=== PATIENT | female | born 1970 | race Caucasian/White ===

== ENCOUNTER 2019-02-03 02:53 | Emergency (ER) | payer MEDICAID, SELFPAY ==
[2019-02-03 03:07] VITALS: BP 137/77; PULSE 81; RESP 18; TEMP 36.8; O2SAT 98; BMI 33.8
--- NOTE | 2019-02-03 03:13 | XR_ITS ---
XR ankle RT min 3V HISTORY: ITS.REASON: pain ORDERING PHYSICIAN: Kike Crocker MD PATIENT AGE: 49 years Comparison: None FINDINGS: No fracture or dislocation. No lytic or blastic change. There is normal mineralization.. The joint spaces are well-preserved. No significant degenerative/arthritic changes. No erosive changes evident. IMPRESSION: Negative ankle, no acute finding
[2019-02-03 04:25] VITALS: BP 105/61; PULSE 61; RESP 14; O2SAT 98
--- NOTE | 2019-02-03 04:25 | HMH.EDLOEX ---
ED Disposition Clinical Impression: Ankle sprain and strain Disposition: Home, Self-Care Condition on Discharge: Good Instructions: DI for Ankle Sprain Additional Instructions: workman comp form completed Referrals: Arjun Unger [Primary Care Provider] - - Critical Care Critical Care Time: No Attestation: On 02/03/19, the high probability of a clinically significant, sudden or life threatening deterioration of the following system(s) required my full and direct attention, intervention and personal management. The time I documented below is in addition to time spent performing reported procedures but includes the following listed in this critical care notation. Medical Decision Making - Medical Records Medical records reviewed: Yes: I reviewed the patient's medical records. - Elmer Inquiry Pt receiving controlled substance: No Vital Signs: 02/03/19 03:07 Temperature 98.3 F Temperature Source Oral Pulse Rate [Right Radial] 81 Respiratory Rate 18 Blood Pressure [Right Arm] 137/77 Blood Pressure Mean [Right Arm] 97 02 Sat by Pulse Oximetry 98 Orders (Tests/Meds): ORDERS Category Date Time Status XR ankle RT min 3V Stat Exams 02/03/19 03:13 Taken - Radiology Data #1 Image(s): Ankle Image Reviewed: Yes I reviewed the patient's radiology image Preliminary Findings: No Fracture Seen Lower Extremity Injury HPI - General Chief Complaint: Extremity Injury, Lower Stated Complaint: AO 02/03/19 01:00 injury right foot Time Seen by Provider: 02/03/19 03:40 Mode of Arrival: Ambulatory Source of Information: Patient, Medical Record Limitations: No Limitations Description of Symptoms (Recalled from ER Triage Doc. by RN): right ankle pain after injuring it while working tonight at approx 0000 - History of Present Illness HPI Narrative: eversion type injury at work with pain and swelling rt ankile with dec wt bearing complaint: ankle injury Onset (ago): hour(s) Injury: Right: ankle Type of Injury: eversion Place: work Severity: moderate Exacerbating factors: weight bearing, movement, palpation Context: walking Associated symptoms: able to partially bear weight Other symptoms: none - Related Data Allergies Allergy/AdvReac Type Severity Reaction Status Date / Time No Known Allergies Allergy Verified 02/03/19 03:13 [facility] [place] History - Hepatitis A Screen Drug use history?: Yes High risk sexual behaviors?: No History of sexually transmitted infection?: No Currently employed?: No Childcare worker?: No Do you have indoor plumbing?: Yes Do you have electricity?: Yes Attestation statement:: This patient has been screened for Hepatitis A risk factors. I have reviewed the patient's past medical history: Yes Medical History: Denies:: Cancer, Diabetes Mellitus Type 1, Diabetes Mellitus Type 2, MRSA Amputation: No - Social History Smoking Status: Current every day smoker Tobacco Type: e-cigarettes # Packs/Day (cigarettes): 1 Alcohol Intake: never Substance Use Type: opiates Occupational Status: employed - Psychiatric History Expresses thoughts of harming self/others: None Suicide Plan Description: No Plan ROS Obtained: Yes All systems reviewed & no additional complaints - Constitutional Constitutional: Denies fever(s) - Eyes Eyes: Denies change in vision - ENT Ears, Nose, Mouth, and Throat: Denies sore throat - Cardiovascular Cardiovascular: Denies chest pain - Respiratory Respiratory: No cough - Gastrointestinal Gastrointestingal: Denies: abdominal pain - Genitourinary Male Genitourinary: Denies hematuria - Musculoskeletal Musculoskeletal: Reports as per HPI, Reports joint pain, Reports joint swelling, Reports limited range of motion - Integumentary/Breasts Skin/Breast: Denies rash - Neurologic Neurologic: Denies seizure-like activity Physical Exam - General General appearance: alert - Head Head exam: normocephalic - Eye Eye
--- NOTE | 2019-02-03 04:32 | ED_ITS ---
ED Disposition Clinical Impression: Ankle sprain and strain Disposition: Home, Self-Care Condition on Discharge: Good Instructions: DI for Ankle Sprain Additional Instructions: workman comp form completed Referrals: Arjun Unger [Primary Care Provider] - - Critical Care Critical Care Time: No Attestation: On 02/03/19, the high probability of a clinically significant, sudden or life threatening deterioration of the following system(s) required my full and direct attention, intervention and personal management. The time I documented below is in addition to time spent performing reported procedures but includes the following listed in this critical care notation. Medical Decision Making - Medical Records Medical records reviewed: Yes: I reviewed the patient's medical records. - Elmer Inquiry Pt receiving controlled substance: No Vital Signs: 02/03/19 03:07 Temperature 98.3 F Temperature Source Oral Pulse Rate [Right Radial] 81 Respiratory Rate 18 Blood Pressure [Right Arm] 137/77 Blood Pressure Mean [Right Arm] 97 02 Sat by Pulse Oximetry 98 Orders (Tests/Meds): ORDERS Category Date Time Status XR ankle RT min 3V Stat Exams 02/03/19 03:13 Taken - Radiology Data #1 Image(s): Ankle Image Reviewed: Yes I reviewed the patient's radiology image Preliminary Findings: No Fracture Seen Lower Extremity Injury HPI - General Chief Complaint: Extremity Injury, Lower Stated Complaint: AO 02/03/19 01:00 injury right foot Time Seen by Provider: 02/03/19 03:40 Mode of Arrival: Ambulatory Source of Information: Patient, Medical Record Limitations: No Limitations Description of Symptoms (Recalled from ER Triage Doc. by RN): right ankle pain after injuring it while working tonight at approx 0000 - History of Present Illness HPI Narrative: eversion type injury at work with pain and swelling rt ankile with dec wt bearing complaint: ankle injury Onset (ago): hour(s) Injury: Right: ankle Type of Injury: eversion Place: work Severity: moderate Exacerbating factors: weight bearing, movement, palpation Context: walking Associated symptoms: able to partially bear weight Other symptoms: none - Related Data Allergies Allergy/AdvReac Type Severity Reaction Status Date / Time No Known Allergies Allergy Verified 02/03/19 03:13 [facility] History - Hepatitis A Screen Drug use history?: Yes High risk sexual behaviors?: No History of sexually transmitted infection?: No Currently employed?: No Childcare worker?: No Do you have indoor plumbing?: Yes Do you have electricity?: Yes Attestation statement:: This patient has been screened for Hepatitis A risk factors. I have reviewed the patient's past medical history: Yes Medical History: Denies:: Cancer, Diabetes Mellitus Type 1, Diabetes Mellitus Type 2, MRSA Amputation: No - Social History Smoking Status: Current every day smoker Tobacco Type: e-cigarettes # Packs/Day (cigarettes): 1 Alcohol Intake: never Substance Use Type: opiates Occupational Status: employed - Psychiatric History Expresses thoughts of harming self/others: None Suicide Plan Description: No Plan ROS Obtained: Yes All systems reviewed & no radha
[2019-02-03 04:35] VITALS: BP 105/67; PULSE 62; RESP 15; TEMP 36.6; O2SAT 99
== END 2019-02-03 04:39 | disposition home or self-care (01) ==
PROVIDERS: Emergency Provider Emergency Medicine; PCP Family Medicine
DX: M25.571 Pain in right ankle and joints of right foot (principal); X50.1XXA Overexertion from prolonged static or awkward postures, initial encounter; Y92.69 Other specified industrial and construction area as the place of occurrence of the external cause; Y99.0 Civilian activity done for income or pay; F17.290 Nicotine dependence, other tobacco product, uncomplicated
CPT/HCPCS: 73610; 99282

== ENCOUNTER 2020-12-27 13:29 | Emergency (ER) | payer MEDICAID, SELFPAY ==
--- NOTE | 2020-12-27 13:25 | ECG_ITS ---
APPROVED REPORT Exam: Resting ECG HR:70 bpm ECG Measurements Heart Rate 70 AXES NH 138 P 23 QRSd 82 QRS 18 QT 400 T 34 QTc 432 Conclusion Normal sinus rhythm Normal ECG Electronically signed by : Jordan Azevedo, 12/27/2020 17:33:51
[2020-12-27 13:30] VITALS: BP 100/51; PULSE 68; RESP 16; TEMP 36.6; O2SAT 97; BMI 28.3
--- NOTE | 2020-12-27 13:31 | XR_ITS ---
PROCEDURE: XR CHEST PORTABLE CLINICAL HISTORY: Chest pain COMPARISON: No exams were available for comparison FINDINGS: The cardiomediastinal silhouette and pulmonary vascularity are within normal limits. The lungs are clear without infiltrates, suspicious nodules, or pleural effusions. Small focal area of increased density is present overlying the anterior aspect of the right 6th rib and may be due to summation artifact. An underlying granuloma is also consideration. There is an old right clavicular fracture. IMPRESSION: No acute findings. Dictated by: Km Ramirez MD 12/27/2020 14:03 Km Ramirez MD in [facility] 12/27/2020 14:03
--- NOTE | 2020-12-27 13:40 | HMH.EDGENADL ---
ED Disposition Clinical Impression: Chest pain Qualifiers: Chest pain type: other chest pain Qualified Code(s): R07.89 - Other chest pain Disposition: Home, Self-Care Condition on Discharge: Good Additional Instructions: Try [id number] medication such as Tylenol and ibuprofen for pain. Use ice on chest. Return immediately if new or recurrent symptoms. Referrals: PCP,No [Non-Staff] - - Critical Care Critical Care Time: No Attestation: On 12/27/20, the high probability of a clinically significant, sudden or life threatening deterioration of the following system(s) required my full and direct attention, intervention and personal management. The time I documented below is in addition to time spent performing reported procedures but includes the following listed in this critical care notation. Medical Decision Making - Medical Records Medical records reviewed: Yes: I reviewed the patient's medical records. - Elmer Inquiry Pt receiving controlled substance: No Vital Signs: 12/27/20 13:30 12/27/20 14:12 Temperature 97.8 F Temperature Source Oral Pulse Rate 71 Pulse Rate [Right] 68 Respiratory Rate 16 18 Blood Pressure 105/63 L Blood Pressure [Right Arm] 100/51 L Blood Pressure Mean [Right Arm] 67 02 Sat by Pulse Oximetry 97 96 Oxygen Delivery Method Room Air - Lab Data Lab Results 12/27/20 13:30: WBC 5.5, RBC 4.55, Hgb 14.0, Hct 43.3, MCV 95.1, MCH 30.7, MCHC 32.3, RDW 13.4, Plt Count 258, MPV 8.0, Neut % (Auto) 63.8, Lymph % (Auto) 24.8, Sully % (Auto) 7.7, Eos % (Auto) 2.3, Baso % (Auto) 1.4, Neut # (Auto) 3.5, Lymph # (Auto) 1.4, Sully # (Auto) 0.4, Eos # (Auto) 0.1, Baso # (Auto) 0.1 12/27/20 13:30: Sodium 138, Potassium 4.2, Chloride 104, Carbon Dioxide 31 H, Anion Gap 7.2, BUN 11, Creatinine 0.60, Estimated Creat Clear 126, Estimated GFR 106, Est GFR ( Amer) 129, Glucose 97, Calcium 8.8, Troponin I < 0.01 12/27/20 16:56: Troponin I < 0.01 Result diagrams: 12/27/20 13:30 12/27/20 13:30 Orders (Tests/Meds): ED MEDICATIONS Discontinued Medications Generic Name Dose Route Start Last Admin Trade Name [place] PRN Reason Stop Dose Admin Iopamidol 75 ml 12/27/20 14:48 12/27/20 14:49 Iopamidol-370 (76%);100ml Bottle IV 12/27/20 14:49 75 ml ONCE ONE Administration Sodium Chloride 10 ml 12/27/20 14:48 12/27/20 14:48 Sodium Chloride 0.9% 10ml Syr (Rad Only) IV 12/27/20 14:49 10 ml ONCE ONE Administration ORDERS Category Date Time Status Troponin I Q3H Lab 12/27/20 19:45 Ordered - ECG Data Tracing #1 I reviewed this ECG and interpreted as documented below: EKG demonstrates sinus rhythm at a rate of 70 bpm; no T wave inversions or any acute ST depression/elevation; normal axis; QTC 432 ms Medical Decision Narrative: Patient presents with chest pain. EKG nonischemic which was obtained immediately upon arrival. Differential diagnosis does include aortic dissection versus ACS versus diffuse esophageal spasm versus costochondritis versus anemia versus acute cardiopulmonary abnormality. I am concerned the patient had chest pain that radiated to her back. 2+ pulses in bilateral upper and lower extremities but due to the concern for dissection CT chest with contrast will be obtained. Cardiac enzymes currently pending along with other basic lab test to ensure no hematologic or metabolic derangement. Labs nonactionable. Cardiac enzyme testing within normal limits x2. CT demonstrates no acute cardiopulmonary abnormality. Patient with improved symptoms since arrival with a low heart score. I do believe she is safe to be discharged. Etiology not entirely known but I did go over home remedies and instructed her to follow-up with her PCP in several days for recheck. She agrees. She will return if recurrent issues, new symptoms, or other concerning symptoms. Assessment: Chest pain Disposition: Home with followup General Adult [facility] - [facility]
[2020-12-27 13:54] LABS: Basophils # 0.1 K/mm3 (0-0.2); Basophils % 1.4 % (0.1-2.0); Eosinophils # 0.1 K/mm3 (0.0-0.4); Eosinophils % 2.3 % (0.1-12.0); Hematocrit 43.3 % (37.0-47.0); Lymphocytes # 1.4 K/mm3 (0.7-4.5); Lymphocytes % 24.8 % (10-50); Mean Corpuscular HGB Conc 32.3 g/dL (31.8-35.4); Mean Corpuscular Hemoglobin 30.7 pg (27.0-31.2); Mean Corpuscular Volume 95.1 fl (81-99); Monocytes # 0.4 K/mm3 (0.1-1.0); Monocytes % 7.7 % (1.7-9.3); Neutrophils # 3.5 K/mm3 (1.8-7.8); Neutrophils % 63.8 % (37.0-80.0); Platelet Count 258 K/mm3 (142-424); Red Blood Count 4.55 M/mm3 (4.20-5.40); Red Cell Distribution Width 13.4 % (11.5-17.5); White Blood Count 5.5 K/mm3 (4.8-10.8)
[2020-12-27 13:56] LABS: Anion Gap 7.2 mEq/L (5-15); Blood Urea Nitrogen 11 mg/dl (7-17); Calcium 8.8 mg/dl (8.4-10.2); Carbon Dioxide 31 mmol/L (22.0-30.0); Chloride 104 mmol/L (98-107); Creatinine Clearance Estimated 126 mL/min (50-200); Estimated Glomerular Filt Rate 106 ml/min (>60); GFR (African American) 129 ML/MIN (>60); Glucose 97 mg/dl (74-100); Potassium 4.2 mmoL/L (3.5-5.1); Sodium 138 mmol/L (136-145)
--- NOTE | 2020-12-27 14:05 | CT_ITS ---
PROCEDURE: CT CHEST W CON CLINCAL INDICATION: chest pain radiating to back Chest pain radiating into the back COMPARISON: No exams were available for comparison TECHNIQUE: IV Contrast: 75ml Isovue 370 Axial images obtained with sagittal and coronal reformats. All CT scans at the facility use one or more dose reduction, viz: automated exposure control, ma/kV adjustment per patient size (including targeted exams where dose is matched to indication, i.e. head), or iterative reconstruction technique. FINDINGS: HEART AND MEDIASTINAL STRUCTURES: The left lobe of the thyroid gland is slightly enlarged with a posterior extension. No evidence of aortic aneurysm or dissection. No evidence of central pulmonary embolus. No mediastinal or hilar mass or adenopathy. LUNGS AND PLEURAL SPACES: No areas of consolidation. Calcified granuloma is present in the left lower lobe. There is patchy ground-glass attenuation in the right upper lobe posteriorly and laterally BONY STRUCTURES: No acute bony abnormalities apparent. UPPER ABDOMEN: There is a moderate amount of retained colonic feces.. There is mild diffuse thickening of the stomach ADDITIONAL FINDINGS: No other significant abnormalities. IMPRESSION: 1. No evidence of aortic aneurysm or central pulmonary embolus. 2. Faint area of ground-glass attenuation in the right upper lobe. This is nonspecific. 3. Moderate amount of retained colonic feces. 4. Diffuse thickening of the gastric wall which could be due to nondistention or gastritis. Dictated by: Km Ramirez MD 12/27/2020 15:40 Km Ramirez MD in [facility] 12/27/2020 15:40
[2020-12-27 14:12] VITALS: BP 105/63; PULSE 71; RESP 18; O2SAT 96
[2020-12-27 14:12] LABS: Troponin I < 0.01 ng/ml (0.00-0.034)
--- NOTE | 2020-12-27 14:41 | PC.NURSE ---
pt gone to rad.
--- NOTE | 2020-12-27 14:49 | PC.NURSE ---
pt returning from rad
[2020-12-27 17:00] VITALS: BP 100/59; PULSE 52; RESP 16; O2SAT 97
--- NOTE | 2020-12-27 17:40 | PC.NURSE ---
Talking to Eliz in lab to follow up on second troponin.
[2020-12-27 17:41] LABS: Troponin I < 0.01 ng/ml (0.00-0.034)
--- NOTE | 2020-12-27 18:34 | PC.NURSE ---
pt karla. Patient was called via phone and states, I was having really bad anxiety just sitting there waiting and I had to get out and get fresh air. Pt states she was outside sitting in her car and that she took her IV out herself and put a bandaid on it. Patient advised to come back to ensure IV was removed per nursing staff request.
[2020-12-27 18:49] VITALS: BP 132/71; PULSE 87; RESP 18; TEMP 36.9; O2SAT 98
== END 2020-12-27 18:45 | disposition home or self-care (01) ==
PROVIDERS: Emergency Provider Emergency Medicine; PCP Family Medicine
DX: R07.89 Other chest pain (principal); F17.290 Nicotine dependence, other tobacco product, uncomplicated
CPT/HCPCS: 71045; 71260; 80048; 84484; 85025; 93005; 99282; Q9967

== ENCOUNTER 2021-07-03 09:56 | Emergency (ER) | payer MEDICAID, SELFPAY ==
[2021-07-03 09:57] VITALS: BP 148/95; PULSE 79; RESP 18; TEMP 36.9; O2SAT 98; BMI 28.3
[2021-07-03 10:25] LABS: UTC Strep Screen (Rapid) Negative (Negative)
--- NOTE | 2021-07-03 10:40 | HMH.EDUTC ---
[facility] [place] Disposition Clinical Impression: Bronchitis Sinusitis Qualifiers: Sinusitis location: unspecified location Chronicity: unspecified Qualified Code(s): J32.9 - Chronic sinusitis, unspecified Disposition: Home, Self-Care Condition on Discharge: Good Instructions: Sinusitis, Acute Bronchitis, DI for Sinusitis, Prednisone, Azithromycin Additional Instructions: ? Start antibiotic today. Be sure to complete entire prescription even if feeling better ? Monitor temp. Tylenol every 4 hours as needed and / or ibuprofen every 6 hours as needed ( As long as your primary care physician has told you that it ok to take both. For fever/aches/pains ER if no less than 101 despite Tylenol or Motrin ? Humidifier/vaporizer or hot steamy shower ? Mucinex during the day for your cough Be sure to drink lots of water. *Start steroid today. Helps with inflammation therefore, cough and wheezing. Follow directions on the package. Reviewed side effects. Patient reports taking them before. Follow up IMMEDIATELY for new or worsening of symptoms OR no noticeable improvement over the next 48-72 hours. 911 immediately for any life threatening symptoms such as chest pain or difficulty breathing Prescriptions: predniSONE [Deltasone 10mg tablet] 10 mg PO BID #10 tab Transmission Status: Received by [facility] guaiFENesin [Mucinex 600mg tablet] 1 - 2 tab PO Q12H PRN #20 tab PRN Reason: Congestion Transmission Status: Received by [facility] Azithromycin [Z-Delano 250mg Tab] 250 mg PO DIRECTED #6 tab Transmission Status: Received by [facility] Referrals: Provider,Referral, MD [Primary Care Provider] - As needed Forms: Work/School Release Time of Disposition: 10:51 Medical Decision Making - Elmer Inquiry Pt receiving controlled substance: No Elmer was queried for this patient: No Vital Signs: 07/03/21 09:57 07/03/21 10:59 Temperature 98.4 F 98.4 F Temperature Source Oral Pulse Rate 79 Pulse Rate [Left Radial] 79 Respiratory Rate 18 18 Blood Pressure 148/95 H Blood Pressure [Right Arm] 148/95 H Blood Pressure Mean [Right Arm] 112 Blood Pressure Source [Right Arm] Automatic Cuff Blood Pressure Position [Right Arm] Sitting 02 Sat by Pulse Oximetry 98 Oxygen Delivery Method Room Air Room Air - Lab Data Lab results reviewed: Yes: I reviewed the patient's lab results. Lab Results 07/03/21 10:18: Strep Scn Rapid Clinic Negative Orders (Tests/Meds): ORDERS Category Date Time Status Strep Screen Confirmation Routine Micro 07/03/21 10:18 Received [facility] [place] HPI - General Stated complaint: sore throat, cough, noam, runny nose Time Seen by Provider: 07/03/21 10:41 Mode of Arrival: Ambulatory Source of Information: Patient Limitations: No Limitations Description of Symptoms (Recalled from Triage Doc. by RN): c/o cough, sore throat, congestion, coughing with greenish sputum for the past 3 days HEENT Symptoms (Recalled from RN notes): Yes Resp Symptoms (Recalled from RN notes): Yes Skin Symptoms (Recalled from RN notes): No MS Symptoms (Recalled from RN notes): No Functional Status (Recalled from RN notes): na - History of Present Illness Provider Complaint: Patient states that she has been having sinus congestion and pressure for over a week States that she feels like it is draining in the back of her throat making her throat hurt and at times she will cough up the drainage States that today she was still having pressure and and sore throat throat so she came in to get checked thinks she may have bronchitis - Related Data Previous Rx's Medication Instructions Recorded Azithromycin [Z-Delano 250mg Tab] 250 mg PO DIRECTED #6 tab 07/03/21 guaiFENesin [Mucinex 600mg tablet] 1 - 2 tab PO Q12H PRN #20 tab 07/03/21 predniSONE [Deltasone 10mg tablet] 10 mg PO BID #10 tab 07/03/21 Allergies Allergy/AdvReac Type Severity Reaction Status Date / Time No Known Allergies Allergy Verified
[2021-07-03 10:59] VITALS: BP 148/95; PULSE 79; RESP 18; TEMP 36.9; O2SAT 98
== END 2021-07-03 11:00 | disposition home or self-care (01) ==
PROVIDERS: Emergency Provider Nurse Practitioner
DX: J20.9 Acute bronchitis, unspecified (principal); J32.9 Chronic sinusitis, unspecified; Z20.822 Contact with and (suspected) exposure to COVID-19; F17.290 Nicotine dependence, other tobacco product, uncomplicated
CPT/HCPCS: 87880; 99203; C9803; G0463; U0003; U0005

== ENCOUNTER 2022-02-14 17:30 | Outpatient (RCR) | payer MEDICAID, SELFPAY | END 2022-02-14 17:35 | disposition home or self-care (01) | LOC: PT 17:30 | PROVIDERS: Visit Provider Physician Assistant | DX: M50.30 Other cervical disc degeneration, unspecified cervical region (principal); M70.61 Trochanteric bursitis, right hip; M70.62 Trochanteric bursitis, left hip | CPT/HCPCS: 97110; 97163 ==

== ENCOUNTER → 2022-09-02 11:04 | Outpatient (CLI) | payer MEDICAID, SELFPAY ==
--- NOTE | 2022-09-02 11:08 | MR_ITS ---
FINAL REPORT CLINICAL HISTORY: CERVICAL DDD. NECK PAIN. RIGHT ARM NUMBNESS AND TINGLING. SYMPTOMS X6-7 YEARS. NO INJURY OR TRAUMA. FINDINGS: Multiplanar MR imaging of the cervical spine was performed without contrast. On the sagittal T2-weighted images, disc degeneration is seen throughout. There are mild endplate changes at C4-C5 and C5-C6. There is no evidence of fracture. The vertebral alignment is normal. The cervical spinal cord has an unremarkable appearance without evidence of mass, edema or syrinx. The cervicomedullary junction is normal. C2-3: There is no significant canal stenosis or neural foraminal narrowing. C3-4: There is a small central disc protrusion. There is no significant canal stenosis or neural foraminal narrowing. C4-5: A disc osteophyte complex with mild right neural foraminal narrowing. C5-6: There is a disc osteophyte complex with severe right and mild left neural foraminal narrowing. There is mild central canal stenosis with an AP thecal sac diameter of 7 mm. There is right C6 nerve root impingement. C6-7: There is an annular bulge with uncovertebral osteophytes. There is mild bilateral neural foraminal narrowing. C7-T1: There is no significant canal stenosis or neural foraminal narrowing. IMPRESSION: Multilevel degenerative disc disease with areas of neural foraminal narrowing. Mild central canal stenosis and right C6 nerve root impingement at C5-C6. Small central disc protrusion at C3-C4. Reviewed, Interpreted and Dictated by Carlo Shukla III, MD Transcribed by Konstantin Barros Authenticated and [facility]
== END ==
PROVIDERS: PCP Family Medicine; Visit Provider Orthopaedic Surgery Adult Reconstructive Orthopaedic Surgery
DX: M50.30 Other cervical disc degeneration, unspecified cervical region (principal)
CPT/HCPCS: 72141; 76376

== ENCOUNTER → 2022-10-08 11:04 | Outpatient (CLI) | payer MEDICAID, SELFPAY ==
[2022-10-08 11:29] LABS: Basophils # 0.1 K/mm3 (0-0.2); Basophils % 2.1 % (0.1-2.0); Eosinophils # 0.1 K/mm3 (0.0-0.4); Eosinophils % 0.9 % (0.1-12.0); Hematocrit 41.9 % (37.0-47.0); Hemoglobin 13.5 g/dL (12.2-16.2); Lymphocytes # 1.7 K/mm3 (0.7-4.5); Lymphocytes % 29.9 % (10-50); Mean Corpuscular HGB Conc 32.3 g/dL (31.8-35.4); Mean Corpuscular Hemoglobin 30.6 pg (27.0-31.2); Mean Corpuscular Volume 94.7 fl (81-99); Mean Platelet Volume 7.4 fl (7.4-10.4); Monocytes # 0.5 K/mm3 (0.1-1.0); Neutrophils # 3.4 K/mm3 (1.8-7.8); Neutrophils % 59.1 % (37.0-80.0); Platelet Count 290 K/mm3 (142-424); Red Blood Count 4.43 M/mm3 (4.20-5.40); Red Cell Distribution Width 13.6 % (11.5-17.5); White Blood Count 5.7 K/mm3 (4.8-10.8)
[2022-10-08 12:30] LABS: Thyroid Stimulating Hormone 1.79 uIU/mL (0.465-4.68)
[2022-10-09 11:58] LABS: Estradiol 80.5 pg/mL (.); FSH 18.2 mIU/mL (.)
== END ==
PROVIDERS: PCP Family Medicine; Visit Provider Obstetrics & Gynecology
DX: Z01.419 Encounter for gynecological examination (general) (routine) without abnormal findings (principal); N92.6 Irregular menstruation, unspecified
CPT/HCPCS: 36415; 82670; 83001; 84443; 85025

== ENCOUNTER → 2022-10-28 13:35 | Outpatient (CLI) | payer MEDICAID, SELFPAY ==
--- NOTE | 2022-10-28 13:40 | MM_ITS ---
PROCEDURE INFORMATION: Exam: MG Bilateral Screening 3D Mammography Exam date and time: 10/28/2022 1:40 PM Age: 52 years old Clinical indication: Screening mammogram TECHNIQUE: Imaging protocol: Bilateral Screening tomosynthesis and 2D mammography including computer-aided detection (CAD) when performed. COMPARISON: No relevant prior studies available. FINDINGS: MAMMOGRAPHY: Breast composition: There are scattered areas of fibroglandular density. Mass: None. Architectural distortion: No new or suspicious architectural distortion. Calcifications: No new or suspicious calcifications are present Asymmetric density: No new or suspicious asymmetric density is present Skin thickening: None. Axillary adenopathy: None. IMPRESSION: No mammographic evidence of malignancy. Recommend annual screening mammography unless otherwise clinically indicated. ASSESSMENT: BI-RADS category 1: Negative
--- NOTE | 2022-10-28 13:40 | US_ITS ---
FINAL REPORT CLINICAL HISTORY: abnormal bleeding and LLQ pain FINDINGS: Transvaginal sonographic images of the pelvis were obtained. The uterus measures 9.3 x 4.8 x 5.5 cm. The endometrium measures 5 mm. The right ovary measures 2.4 x 1.3 x 1.0 cm. The left ovary measures 3.0 x 2.6 x 1.9 cm. There is a left ovarian cyst measuring 1.6 cm. No free fluid is identified. IMPRESSION: Left ovarian cyst. Reviewed, Interpreted and Dictated by Carlo Shukla III, MD Transcribed by Tesha Soto Authenticated and . [facility]
== END ==
PROVIDERS: PCP Family Medicine; Visit Provider Obstetrics & Gynecology
DX: Z12.31 Encounter for screening mammogram for malignant neoplasm of breast (principal); N93.9 Abnormal uterine and vaginal bleeding, unspecified; R10.32 Left lower quadrant pain
CPT/HCPCS: 76830; 77063; 77067

== ENCOUNTER 2022-11-01 08:35 | Emergency (ER) | payer MEDICAID, SELFPAY ==
[2022-11-01] VITALS (10 sets, daily range): BP systolic 91–147; BP diastolic 45–85; PULSE 64–88; RESP 18–20; TEMP 36.3–36.4; O2SAT 97–100; BMI 27.4
--- NOTE | 2022-11-01 08:47 | PC.NURSE ---
pt ambulatory to restroom without complications; assistance from [employer]
--- NOTE | 2022-11-01 08:55 | PC.NURSE ---
DAGOBERTO ORDAZ at for patient eval
--- NOTE | 2022-11-01 08:56 | PC.NURSE ---
pt provided with warm blanket.
--- NOTE | 2022-11-01 08:59 | US_ITS ---
FINAL REPORT CLINICAL HISTORY: abdo pain, vomiting FINDINGS: Sonographic images of the right upper quadrant were obtained. The pancreas is partially obscured.The liver has an unremarkable appearance. The gallbladder is partially collapsed. No definite stones are identified. The common duct is borderline dilated at 6 mm. Limited images of the right kidney are unremarkable. IMPRESSION: Borderline dilatation of the common duct. If indicated, MRCP may be helpful. Reviewed, Interpreted and Dictated by Carlo Shukla III, MD Transcribed by Tesha Soto Authenticated and [facility]
--- NOTE | 2022-11-01 08:59 | CT_ITS ---
FINAL REPORT TECHNIQUE: After the administration of intravenous contrast, axial images were obtained through the abdomen and pelvis by computed tomography. This study was performed with technique to keep radiation doses as low as reasonably achievable, (ALARA). Individualized dose reduction techniques using automated exposure control or adjustment of the MA and/or KV according to the patient's size were employed. CLINICAL HISTORY: abdo pain, vomiting COMPARISON: 10/28/2022 ultrasound FINDINGS: Abdomen: There is mild atelectasis at the lung bases. The liver is normal in size and attenuation. There is mild, nonspecific gallbladder wall thickening and mild biliary ductal dilatation. The spleen is unremarkable. The adrenals are normal. The pancreas is unremarkable. The kidneys enhance appropriately. The aorta is normal in caliber. There is no free fluid or adenopathy. Multiple fluid-filled bowel loops are seen in a nonspecific pattern which could represent an enteritis. Pelvis: The appendix is not identified. There are no secondary findings of appendicitis. Moderate stool is seen throughout the colon. There are enlarged left periuterine veins which are nonspecific. Findings can be seen with pelvic congestion syndrome. There is a 15 mm left ovarian cyst. The urinary bladder is unremarkable. There is no free fluid or adenopathy. IMPRESSION: Mild, nonspecific gallbladder wall thickening and biliary ductal dilatation. If indicated, this could be further evaluated with MRCP. Enlarged left periuterine veins which can be seen with pelvic congestion syndrome. Multiple fluid-filled bowel loops which could represent enteritis. Reviewed, Interpreted and Dictated by Carlo Shukla III, MD Transcribed by Aicha Linares Authenticated and . [facility]
[2022-11-01 09:02] LABS: Microscopic, Urine URINE MICROSCOPIC (MICROSCOPIC)
--- NOTE | 2022-11-01 09:02 | HMH.EDGENADL ---
Discharge Plan Disposition Patient Disposition: Home, Self-Care Condition: Good Prescriptions Prescriptions: New dicyclomine 20 mg tablet 20 mg PO TIDP PRN (Reason: cramps) Qty: 10 0RF ondansetron 4 mg tablet,disintegrating 4 mg PO Q8H PRN (Reason: nausea and vomiting) Qty: 10 0RF prochlorperazine maleate [Compazine] 10 mg tablet 10 mg PO TID PRN (Reason: nausea and vomiting) Qty: 10 0RF No Action gabapentin 800 mg tablet 800 mg PO QID buprenorphine-naloxone 8-2 mg tablet, sublingual 1 tab sublingual BID Fish Oil Capsule 1,000 mg PO DAILY paroxetine mesylate 10 mg tablet 10 mg PO DAILY Referrals Follow up/Referrals: Eb Unger MD [Primary Care Provider] - See instructions Activity Restrictions/Add. Instructions Additional Instructions/Restrictions: Rest and drink plenty of fluids. Zofran or Compazine as needed for nausea and vomiting. Bentyl as needed for abdominal cramping/pain. You may also take Tylenol for pain and if any fever develops. If you develop diarrhea, you may follow-up with your primary care provider to get a diarrhea panel performed. Additional instructions for ABDOMINAL PAIN: See your physician as soon as possible for further evaluation. Return immediately if worsening abdominal pain, vomiting, shortness of breath, fever, vomiting of blood or abdominal distention. Clinical Impressions Clinical Impression: Enteritis Instructions Patient Instructions: DI for Nausea -- Adult, DI for Enteritis, DI for Abdominal Pain-Adult Discharge ED Provider: Arias Medina General Adult HPI General Chief complaint: Nausea/Vomiting/Diarrhea Stated complaint: vomiting Time Seen by Provider: 11/01/22 08:44 Mode of Arrival: EMS Source of Information: Patient Limitations: No Limitations Description of Symptoms (Recalled from ER Triage Doc. by RN): pt states she has been vomiting for the last hour, nauseous, and has upper abdominal pain, denies diarrhea or fever History of Present Illness HPI narrative: Patient brought in by ambulance. Patient states that she woke up at about 7 AM with intractable vomiting, nausea, severe pain across her mid abdomen. Last bowel movement was in the emergency department she says it was normal formed stool. Denies fever. Denies urinary symptoms. She has had a prior appendectomy. The last meal was at 7 PM last night. States that she has been in and out of the hospital as a visitor recently, but no recent hospital admissions, no specific known exposures. Related Data Home Medications Medication Instructions Recorded Confirmed buprenorphine 8 mg-naloxone 2 mg 1 tab sublingual BID . 10/08/22 11/01/22 sublingual tablet gabapentin 800 mg tablet 800 mg PO QID Pain 10/08/22 11/01/22 omega-3 fatty acids 1,000 mg PO DAILY Supplement 11/01/22 11/01/22 paroxetine mesylate 10 mg tablet 10 mg PO DAILY Depression 11/01/22 11/01/22 Previous Rx's Medication Instructions Recorded dicyclomine 20 mg tablet 20 mg PO TIDP PRN cramps #10 tabs 11/01/22 ondansetron 4 mg disintegrating 4 mg PO Q8H PRN nausea and 11/01/22 tablet vomiting #10 tabs prochlorperazine maleate 10 mg 10 mg PO TID PRN nausea and 11/01/22 tablet (Compazine) vomiting #10 tabs Allergies Allergy/AdvReac Type Severity Reaction Status Date / Time Latex, Natural Rubber Allergy Mild Rash Verified 10/08/22 09:53 cyclobenzaprine Allergy Verified 11/01/22 08:46 [From Flexeril] [facility] Disclaimer: The information contained in this section may have been updated after the patient was seen, as this information can be updated by other users. Medical History Abnormal uterine bleeding Degenerative disc disease Hot flashes due to menopause LLQ pain Surgical History History of bilateral tubal ligation Hx of appendectomy Family History (
[2022-11-01 09:04] LABS: Appearance,Urine CLEAR (Clear); Bilirubin,Urine Negative (Negative); Blood, Urine Negative (Negative); Color,Urine YELLOW (Yellow); Glucose,Urine (UA) Negative (Negative); Ketones,Urine Negative (Negative); Leukocyte Esterase,Urine Negative (Negative); Nitrate,Urine Negative (Negative); Protein,Urine Negative (Negative); Urobilinogen,Urine 0.2 EU/dl (0.2)
--- NOTE | 2022-11-01 09:09 | ECG_ITS ---
APPROVED REPORT Exam: Resting ECG HR:59 bpm ECG Measurements Heart Rate 59 AXES [place] 156 P 71 QRSd 88 QRS 43 QT 416 T 52 QTc 416 Conclusion SINUS BRADYCARDIA BORDERLINE ECG UNCONFIRMED REPORT Electronically signed by : Jordan Azevedo MD 11/02/2022 20:02:00
--- NOTE | 2022-11-01 09:13 | PC.NURSE ---
Pt given another warm blanket and pillow for comfort; and her room lights out. call light within reach
[2022-11-01 09:14] LABS: Chloride 106 mmol/L (98-107); Potassium 4.1 mmoL/L (3.5-5.1); Sodium 140 mmol/L (136-145)
[2022-11-01 09:17] LABS: Alanine Aminotransferase 22 U/L (12-78); Albumin Level 4.3 g/dl (3.5-5.0); Albumin/Globulin Ratio 1.4 (1.1-1.8); Alkaline Phosphatase 56 U/L (38-126); Anion Gap 7.1 mEq/L (5-15); Aspartate Amino Transferase 30 U/L (14-36); Bilirubin,Total 0.5 mg/dl (0.2-1.3); Blood Urea Nitrogen 16 mg/dl (7-17); Calcium 8.8 mg/dl (8.4-10.2); Carbon Dioxide 31 mmol/L (22.0-30.0); Creatinine Clearance Estimated 109 mL/min (50-200); Estimated Glomerular Filt Rate 88 ml/min (>60); GFR (African American) 107 ML/MIN (>60); Globulin 3.1 g/dL (1.3-3.2); Glucose 138 mg/dl (74-100); Lipase 48 U/L (23-300); Total Protein,Serum 7.4 g/dl (6.3-8.2)
[2022-11-01 09:18] LABS: Basophils # 0.1 K/mm3 (0-0.2); Basophils % 0.9 % (0.1-2.0); Eosinophils # 0.1 K/mm3 (0.0-0.4); Hemoglobin 14.7 g/dL (12.2-16.2); Lymphocytes # 1.1 K/mm3 (0.7-4.5); Lymphocytes % 17.3 % (10-50); Mean Corpuscular HGB Conc 31.3 g/dL (31.8-35.4); Mean Corpuscular Hemoglobin 30.4 pg (27.0-31.2); Mean Platelet Volume 8.3 fl (7.4-10.4); Monocytes # 0.3 K/mm3 (0.1-1.0); Neutrophils # 4.9 K/mm3 (1.8-7.8); Neutrophils % 75.8 % (37.0-80.0); Platelet Count 355 K/mm3 (142-424); Red Blood Count 4.85 M/mm3 (4.20-5.40); Red Cell Distribution Width 13.8 % (11.5-17.5); White Blood Count 6.5 K/mm3 (4.8-10.8)
[2022-11-01 09:24] LABS: Squamous Epithelial Cell,Urine Occasional #/hpf (0-5)
[2022-11-01 09:30] LABS: Troponin I < 0.01 ng/ml (0.00-0.034)
--- NOTE | 2022-11-01 09:30 | PC.NURSE ---
pt transported to radiology via wheelchair.
--- NOTE | 2022-11-01 09:31 | PC.NURSE ---
pt is going to ct via wheelchair
--- NOTE | 2022-11-01 09:42 | PC.NURSE ---
pt arrived back to room
--- NOTE | 2022-11-01 09:43 | PC.NURSE ---
pt returned from radiology via wheelchair.
--- NOTE | 2022-11-01 09:49 | PC.NURSE ---
pt resting in bed at this time. states she feels better. denies nausea or pain. call light within reach. bed in lowest position. ns infusing. lights out per pt reuqest. no questions or concerns voiced.
--- NOTE | 2022-11-01 10:12 | PC.NURSE ---
pt is going to rad for ultrasound
--- NOTE | 2022-11-01 10:13 | PC.NURSE ---
pt to US with remote sensing technician via WC
--- NOTE | 2022-11-01 10:15 | PC.NURSE ---
PT TRANSPORTED TO ULTRASOUND VIA WHEELCHAIR.
--- NOTE | 2022-11-01 10:15 | PC.NURSE ---
VAISHNAVI PROVIDED PT WITH ANOTHER WARM BLANKET.
--- NOTE | 2022-11-01 10:48 | PC.NURSE ---
ot returned back to room
--- NOTE | 2022-11-01 11:14 | PC.NURSE ---
pt resting no complaints at this time at bedside
--- NOTE | 2022-11-01 11:20 | PC.NURSE ---
CHECKED ON PT. RESTING IN BED AT THIS TIME. NO QUESTIONS OR CONCERNS VOICED. CALL LIGHT WITHIN REACH. BED IN LOWEST POSITION.
--- NOTE | 2022-11-01 12:09 | PC.NURSE ---
helped pt reposition in the bed
--- NOTE | 2022-11-01 12:25 | PC.NURSE ---
CHECKED ON PT. RESTING IN BED. NO QUESTIONS OR CONCERNS VOICED AT THIS TIME. CALL LIGHT WITHIN REACH. BED IN LOWEST POSITION.
--- NOTE | 2022-11-01 12:34 | PC.NURSE ---
DAGOBERTO ORDAZ AT BEDSIDE.
--- NOTE | 2022-11-01 12:35 | PC.NURSE ---
er at bedside
== END 2022-11-01 13:06 | disposition home or self-care (01) ==
PROVIDERS: Emergency Provider Emergency Medicine; PCP Ophthalmology
DX: K52.9 Noninfective gastroenteritis and colitis, unspecified (principal); Z90.49 Acquired absence of other specified parts of digestive tract; Z98.51 Tubal ligation status; Z80.9 Family history of malignant neoplasm, unspecified; Z82.49 Family history of ischemic heart disease and other diseases of the circulatory system
CPT/HCPCS: 74177; 76705; 80053; 81001; 83690; 84484; 85025; 93005; 96361; 96374; 96375; 99285; J2405; Q9967

== ENCOUNTER → 2022-12-11 15:15 | Outpatient (CLI) | payer MEDICAID, SELFPAY ==
[2022-12-11 15:35] LABS: Basophils # 0.1 K/mm3 (0-0.2); Basophils % 2.1 % (0.1-2.0); Eosinophils # 0.1 K/mm3 (0.0-0.4); Eosinophils % 1.9 % (0.1-12.0); Hematocrit 42.2 % (37.0-47.0); Hemoglobin 13.4 g/dL (12.2-16.2); Lymphocytes # 1.3 K/mm3 (0.7-4.5); Lymphocytes % 25.1 % (10-50); Mean Corpuscular HGB Conc 31.8 g/dL (31.8-35.4); Mean Corpuscular Hemoglobin 30.5 pg (27.0-31.2); Mean Corpuscular Volume 95.9 fl (81-99); Mean Platelet Volume 7.5 fl (7.4-10.4); Monocytes # 0.5 K/mm3 (0.1-1.0); Monocytes % 8.9 % (1.7-9.3); Neutrophils # 3.2 K/mm3 (1.8-7.8); Neutrophils % 62.1 % (37.0-80.0); Platelet Count 262 K/mm3 (142-424); Red Blood Count 4.41 M/mm3 (4.20-5.40); Red Cell Distribution Width 13.6 % (11.5-17.5); White Blood Count 5.2 K/mm3 (4.8-10.8)
[2022-12-11 16:35] LABS: Alanine Aminotransferase 23 U/L (12-78); Albumin Level 4.4 g/dl (3.5-5.0); Albumin/Globulin Ratio 1.7 (1.1-1.8); Alkaline Phosphatase 59 U/L (38-126); Anion Gap 11.8 mEq/L (5-15); Aspartate Amino Transferase 30 U/L (14-36); Bilirubin,Total 0.5 mg/dl (0.2-1.3); Blood Urea Nitrogen 9 mg/dl (7-17); Calcium 9.1 mg/dl (8.4-10.2); Carbon Dioxide 32 mmol/L (22.0-30.0); Chloride 100 mmol/L (98-107); Estimated Glomerular Filt Rate 88 ml/min (>60); GFR (African American) 107 ML/MIN (>60); Globulin 2.6 g/dL (1.3-3.2); Glucose 89 mg/dl (74-100); Potassium 4.8 mmoL/L (3.5-5.1); Sodium 139 mmol/L (136-145)
[2022-12-11 16:52] LABS: HCG,Quantitative 3 mIU/ml (0-5.42)
== END ==
PROVIDERS: PCP Family Medicine; Visit Provider Obstetrics & Gynecology
DX: N93.9 Abnormal uterine and vaginal bleeding, unspecified (principal); Z01.812 Encounter for preprocedural laboratory examination
CPT/HCPCS: 36415; 80053; 84702; 85025

== ENCOUNTER 2022-12-18 06:00 | Day surgery (SDC) | payer MEDICAID, SELFPAY ==
[2022-12-18] VITALS (10 sets, daily range): BP systolic 124–139; BP diastolic 78–89; PULSE 64–73; RESP 16–18; TEMP 36.1–43; O2SAT 97–100; BMI 29.0
--- NOTE | 2022-12-18 07:11 | P.PN_ITS ---
[facility] Disclaimer: The information contained in this section may have been updated after the patient was seen, as this information can be updated by other users. Medical History Abnormal uterine bleeding Allergies Bronchitis Degenerative disc disease Depression History of anemia Hot flashes due to menopause LLQ pain Pneumonia Sinus headache Urinary tract infection Surgical History History of bilateral tubal ligation Hx of appendectomy Family History Other Alzheimers disease Cancer Hypertension Social History Smoking Status: Never smoker alcohol intake: never substance use type: opiates current occupational status: employed Travel in the last 8 weeks: None household members: spouse housing: house marital status: education level: college service: No caffeine: Yes special nic needs: No agree to transfusion: No do you feel safe at home: Yes victim of physical abuse: No victim of emotional abuse: No victim of sexual abuse: No would you like helpful sources: No [facility] Anesthesia Checklist Patient Identification Patient Identification: Arm Band and Verbal (Name & ) Structural Data Admitted From: Home Planned Operative Procedure/s: Hyst/ D & C/ Cadyasure Consent for Planned Operative Procedure(s) Verified: Yes NPO Status Verified Time NPO: 00:00 Additional verifications Anesthesia Reactions: No Hx Blood Transfusions: No Blood Transfusion Reaction: No Airway Assessment C-Spine Mobility Assessed: Yes TMJ Mobility Assessed: Yes Dentition: Good Dentition Neurological Assessment Level of Consciousness: Awake Hx Seizures: No Numbness or tingling in extremities: No Anesthesia Plan Anesthesia Risk discussed: Yes Anesthesia Plan: Verified ASA Class: II Anesthesia Type: MAC
--- NOTE | 2022-12-18 09:13 | P.OP_ITS ---
Date of procedure: 12/18/22 Pre-op Diagnosis:: 1. Abnormal uterine bleeding Post-op Diagnosis:: 1. Abnormal uterine bleeding Procedure performed:: Hysteroscopy, dilation and curettage, Novasure endometrial ablation Surgeon:: Doris Serna DO Supervisor Screen Printing(s):: N/a STEM TEACHER:: Gama Morrison Anesthesia: GETA Estimated blood loss (mL): 0 Clinical Note:: Ms Kaitlynn Eisenberg is a 52 yo P2002 who presents to [facility] for scheduled pr ocedure. She complains of abnormal uterine bleeding. She states she did not have a period from December 2021 until August 2022. In August she bled for the whole month. Bleeding alternated from light to heavy with clots and cramping. She stopped bleeding for 1 week and then started bleeding again 09/13/22. She admits to hot flashes and night sweats.?She has history of tubal ligation. Pelvic ultrasound 10/28/22 demonstrated small, 1.6 cm left ovarian cyst, remainder of exam was within normal limits. TSH 09/2022 was 1.79. Operative findings:: 1. On bimanual exam, uterus midline, midposition and normal size and shape. No adnexal masses palpated 2. On hysteroscopic exam, bilateral tubal ostia easily visualized. Grossly normal appearing endometrial cavity. Small amount of endometrial tissue present. No masses or polyps noted Operative note:: Risks, benefits and alternatives were discussed with the patient. Risks include but are not limited to bleeding, infection, uterine perforation and VTE. Patient voiced understanding and agreed to proceed. She was wheeled back to the operating room and placed under general anesthesia without difficulty. She was placed in dorsal lithotomy position and prepped and draped in the normal sterile fashion. A bimanual exam was performed. A weighted Auvard was placed in the vaginal vault. Single tooth tenaculum was placed on anterior lip of the cervix. Uterus sounded to 8. Sequential Peter dilators were used to dilate the cervical os. Hysteroscope was tested inserted through the cervix without difficulty. Endometrial cavity was evaluated. See findings above. Pictures were taken. Hysteroscope was removed. Medium size sharp curette was inserted through the cervix into the uterine cavity. The endometrial cavity was curetted with a systemic [id number] movement of the curette so that all possible endometrium was sampled. Endometrial curettings will be sent to pathology for review. Novasure sure sound was used to obtain uterine length. Uterus measured 4.5 cm in length and 3.4 cm in cavity width. Novasure deviced was inserted and ablation was performed per protocol at a power of 84 w for 50 seconds. Novasure device was removed. Hysteroscope was reinserted and cavity revealed adequate burn and no uterine perforation. Hysteroscope was removed. Instruments were removed from the vagina. Tenaculum site was noted to be hemostatic. Patient was awaken from anesthesia without difficulty. She was transported to recovery room in stable condition. Patient will be discharged home when awake and ambulating. She was given postop instructions as well as instructions to follow-up in the office in 2 weeks at which time pathology will be reviewed. Condition: stable Disposition: same day Specimens:: 1. Endometrial curettings Complications:: None
--- NOTE | 2022-12-18 09:16 | P.PNANES_ITS ---
[facility] Anesthesia Record Part I Anesthesia Record I Intake, IV Amount: 1,000 Estimated blood loss (mL): 0 Urine output (mL): 0 Blood Products used (#): none Blood Pressure: 131/89 SaO2: 97 Pulse Rate: 71 Respiratory Rate: 16 Temperature: 98.3 F Patient is:: Drowsy and Stable Stable to PACU at:: 09:15
--- NOTE | 2022-12-19 11:16 | P.PNANES_ITS ---
[facility] Anesthesia Record Part II Anesthesia Record Part II Discharge Time: 09:44 Destination: Surgical Day Care (OP Surgery) PACU nurse assessment reviewed?: Yes Patient Condition:: Good Anesthesia Complications:: None Swallowing reflex intact?: Yes Cyanosis?: No Blood Pressure: 133/86 Pulse Rate: 69 Temperature: 97 F Mental Status: Alert & Oriented Pain level:: 0 Nausea and/or vomitting:: None Intake, IV Amount: 0
[2022-12-19 11:17] VITALS: BP 133/86; PULSE 69; TEMP 36.1
== END 2022-12-18 10:15 | disposition home or self-care (01) ==
PROVIDERS: PCP Family Medicine; Visit Provider Obstetrics & Gynecology
PROC: (CPT 58563; principal; 2022-12-18 07:30)
DX: N93.9 Abnormal uterine and vaginal bleeding, unspecified (principal); Z79.899 Other long term (current) drug therapy
CPT/HCPCS: 58563; J2405

== ENCOUNTER → 2023-04-22 16:22 | Outpatient (CLI) | payer MEDICAID, SELFPAY ==
--- NOTE | 2023-04-22 16:28 | MR_ITS ---
PROCEDURE INFORMATION: Exam: MR Cervical Spine Without Contrast Exam date and time: 04/22/2023 4:22 PM Age: 53 years old Clinical indication: Neck pain; Additional info: Neck pain. Left arm pain, numbness and tingling. No injury or trauma. Headache TECHNIQUE: Imaging protocol: Magnetic resonance imaging of the cervical spine without contrast. COMPARISON: MR CERVICAL SPINE WO CON 09/02/2022 11:05 AM FINDINGS: Bones/joints: There is preservation of vertebral alignment. There is preservation of vertebral body heights. No marrow replacing process. Spinal cord: Faint T2 hyperintensity within the cord at C4 level only seen on the STIR sequence without definitive correlate on other sequences, likely artifactual. Spinal cord is otherwise normal in signal characteristics. C2-C3: No evidence of spinal canal stenosis or neural foraminal narrowing. C3-C4: No evidence of spinal canal stenosis or neural foraminal narrowing. C4-C5: Central disc protrusion contributes to moderate spinal canal stenosis and anterior cord indentation. Uncovertebral and facet arthropathy produce mild bilateral neural foraminal narrowing. C5-C6: Central right paracentral disc protrusion contributes to severe spinal canal stenosis and anterior cord indentation. Uncovertebral and facet arthropathy produce moderate bilateral neural foraminal narrowing. C6-C7: Shallow central disc protrusion without significant spinal canal stenosis. There is no significant neural foraminal narrowing. C7-T1: No significant disc bulge or herniation. No severe spinal canal stenosis. No significant neural foraminal narrowing. T1-T2: Shallow central disc protrusion without significant spinal canal stenosis. There is no significant neural foraminal narrowing. Soft tissues: Unremarkable. Vasculature: Expected flow voids in the vertebral arteries. IMPRESSION: Overall no substantial change in multilevel changes more pronounced at C5-C6 contributing to severe spinal canal stenosis. Moderate spinal canal stenosis C4-C5 level.
== END ==
LOC: RAD 16:23
PROVIDERS: PCP Family Medicine; Visit Provider Orthopaedic Surgery Adult Reconstructive Orthopaedic Surgery
DX: M54.2 Cervicalgia (principal)
CPT/HCPCS: 72141; 76376

== ENCOUNTER 2023-05-14 15:34 | Emergency (ER) | payer MEDICAID, SELFPAY ==
[2023-05-14] VITALS (7 sets, daily range): BP systolic 127–141; BP diastolic 83–100; PULSE 72–87; RESP 14–16; TEMP 36.8; O2SAT 95–100; BMI 29.2
[2023-05-14 15:50] LABS: POC Glucose,Bedside 126 (70-110)
--- NOTE | 2023-05-14 15:50 | ECG_ITS ---
APPROVED REPORT Exam: Resting ECG HR:82 bpm ECG Measurements Heart Rate 82 AXES FL 135 P 39 QRSd 85 QRS 38 QT 351 T 48 QTc 389 Conclusion SINUS RHYTHM NORMAL ECG UNCONFIRMED REPORT Electronically signed by : Jordan Azevedo MD 05/15/2023 19:59:10
--- NOTE | 2023-05-14 15:53 | PC.NURSE ---
Dr. Catherine at BS for pt eval
--- NOTE | 2023-05-14 15:59 | XR_ITS ---
FINAL REPORT CLINICAL HISTORY: dyspnea FINDINGS: SINGLE-VIEW CHEST The heart size is normal. The mediastinum is normal. The lungs are clear. There is no pneumothorax. There is a chronic right clavicle fracture. IMPRESSION: No acute cardiopulmonary process. Reviewed, Interpreted and Dictated by Carlo Shukla III, MD Transcribed by Tesha Soto Authenticated and [facility]
--- NOTE | 2023-05-14 16:00 | HMH.EDGENADL ---
Discharge Plan Disposition Patient Disposition: Home, Self-Care Prescriptions Prescriptions: No Action gabapentin 800 mg tablet 800 mg PO QID buprenorphine-naloxone 8-2 mg tablet, sublingual 1 tab sublingual BID omega-3 fatty acids Capsule 1,000 mg PO DAILY Referrals Follow up/Referrals: Arjun Unger MD [Primary Care Provider] - See instructions Josué Strong MD [Staff Physician] - See instructions Activity Restrictions/Add. 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 No emergent medical condition identified today. Clinical Impressions Clinical Impression: Palpitations, Weakness generalized Discharge ED Provider: Ashley Catherine General Adult HPI General Chief complaint: Weakness Stated complaint: weak, tingly , shaky Time Seen by Provider: 05/14/23 15:53 Mode of Arrival: Ambulatory Source of Information: Patient Limitations: No Limitations Description of Symptoms (Recalled from ER Triage Doc. by RN): pt had a episode of heart racing and weakness yesterday, went to [facility] [place] was swabbed for covid/strep/flu was negative and told to go home and rest. pt took today off and had same episode at noon today except had nausea as well. pt called pcp office and has an appt with them tmrw. pt denies any CP,SOA, fever History of Present Illness HPI narrative: Is a 53-year-old female here with multiple complaints. States that she has been feeling fatigued over the last few days had a fever yesterday to 100.5 which was taken orally. She has not had any other symptoms other than fatigue the fever and some palpitations. Had 2 episodes of palpitations that were significant to the point where she was feeling very weak in the middle of them. They lasted approximately an hour each time no symptoms at the moment. She went to an urgent treatment clinic yesterday while she was symptomatic did not have an EKG or any blood work obtained. No diagnosis was formally made other than fatigue. She denies any cough shortness of breath lower extremity edema nausea vomiting diarrhea or any other symptoms. Specifically denies any chest pain as well. Related Data Home Medications Medication Instructions Recorded Confirmed buprenorphine 8 mg-naloxone 2 mg 1 tab sublingual BID . 10/08/22 01/01/23 sublingual tablet gabapentin 800 mg tablet 800 mg PO QID Pain 10/08/22 01/01/23 omega-3 fatty acids 1,000 mg PO DAILY Supplement 11/01/22 01/01/23 Allergies Allergy/AdvReac Type Severity Reaction Status Date / Time Latex, Natural Rubber Allergy Mild Rash Verified 01/01/23 14:43 cyclobenzaprine Allergy Irritable Verified 01/01/23 14:43 [From Flexeril] [facility] Disclaimer: The information contained in this section may have been updated after the patient was seen, as this information can be updated by other users. Medical History Abnormal uterine bleeding Allergies Bronchitis Degenerative disc disease Depression History of anemia Hot flashes due to menopause LLQ pain Pneumonia Sinus headache Urinary tract infection Surgical History History of bilateral tubal ligation History of endometrial ablation Hx of appendectomy Hx of dilation and curettage Family History Other Alzheimers disease Cancer Hypertension Social History Smoking Status: Current every day smoker tobacco type: e-cigarettes alcohol intake: never substance use type: opiates current occupational status: employed Travel in the last 8 weeks: None household members: spouse housing: house marital status: education level: college service: No caffeine:
--- NOTE | 2023-05-14 16:09 | PC.NURSE ---
portable xray at
--- NOTE | 2023-05-14 16:12 | PC.NURSE ---
xray at bedside
[2023-05-14 16:20] LABS: Chloride 105 mmol/L (98-107); Sodium 140 mmol/L (136-145)
[2023-05-14 16:21] LABS: Potassium 3.6 mmoL/L (3.5-5.1)
[2023-05-14 16:23] LABS: Alanine Aminotransferase 25 U/L (12-78); Albumin Level 3.6 g/dl (3.5-5.0); Albumin/Globulin Ratio 1.4 (1.1-1.8); Alkaline Phosphatase 60 U/L (38-126); Anion Gap 9.6 mEq/L (5-15); Aspartate Amino Transferase 27 U/L (14-36); Bilirubin,Total 0.4 mg/dl (0.2-1.3); Blood Urea Nitrogen 17 mg/dl (7-17); Calcium 8.8 mg/dl (8.4-10.2); Carbon Dioxide 29 mmol/L (22.0-30.0); Creatinine Clearance Estimated 126 mL/min (50-200); Estimated Glomerular Filt Rate 105 ml/min (>60); GFR (African American) 127 ML/MIN (>60); Globulin 2.6 g/dL (1.3-3.2); Glucose 132 mg/dl (74-100); Total Protein,Serum 6.2 g/dl (6.3-8.2)
[2023-05-14 16:24] LABS: Magnesium 1.9 mg/dl (1.6-2.3)
[2023-05-14 16:27] LABS: Coronavirus 19, PCR Not Detected (NotDetected); Influenza A, PCR Not Detected (NotDetected); Influenza B, PCR Not Detected (NotDetected)
--- NOTE | 2023-05-14 16:31 | PC.NURSE ---
checked on pt no needs,call light at bs
[2023-05-14 16:34] LABS: NT Pro Brain Natriuretic Pep. 56.2 pg/mL (0-125)
[2023-05-14 16:38] LABS: Troponin I < 0.01 ng/ml (0.00-0.034)
[2023-05-14 16:41] LABS: Basophils # 0.1 K/mm3 (0-0.2); Basophils % 0.7 % (0.1-2.0); Eosinophils # 0.1 K/mm3 (0.0-0.4); Hematocrit 42.2 % (37.0-47.0); Hemoglobin 13.4 g/dL (12.2-16.2); Lymphocytes # 1.6 K/mm3 (0.7-4.5); Lymphocytes % 22.8 % (10-50); Mean Corpuscular HGB Conc 31.8 g/dL (31.8-35.4); Mean Corpuscular Hemoglobin 30.1 pg (27.0-31.2); Mean Corpuscular Volume 94.6 fl (81-99); Mean Platelet Volume 7.9 fl (7.4-10.4); Monocytes # 0.5 K/mm3 (0.1-1.0); Monocytes % 7.6 % (1.7-9.3); Neutrophils # 4.8 K/mm3 (1.8-7.8); Neutrophils % 67.9 % (37.0-80.0); Platelet Count 242 K/mm3 (142-424); Red Blood Count 4.46 M/mm3 (4.20-5.40); Red Cell Distribution Width 13.8 % (11.5-17.5)
[2023-05-14 16:55] LABS: Thyroid Stimulating Hormone 0.96 uIU/mL (0.465-4.68)
== END 2023-05-14 17:31 | disposition home or self-care (01) ==
PROVIDERS: Emergency Provider Student in an Organized Health Care Education/Training Program; PCP Family Medicine
DX: R00.2 Palpitations (principal); R53.1 Weakness; F32.A Depression, unspecified; F17.290 Nicotine dependence, other tobacco product, uncomplicated
CPT/HCPCS: 71045; 80053; 82962; 83735; 83880; 84443; 84484; 85025; 87636; 93005; 96360; 99285

== ENCOUNTER → 2023-06-02 08:18 | Outpatient (CLI) | payer MEDICAID, SELFPAY ==
[2023-06-02 08:24] LABS: Microscopic, Urine URINE MICROSCOPIC (MICROSCOPIC)
[2023-06-02 08:38] LABS: Basophils % 0.8 % (0.1-2.0); Eosinophils # 0.1 K/mm3 (0.0-0.4); Eosinophils % 1.4 % (0.1-12.0); Hematocrit 45.9 % (37.0-47.0); Hemoglobin 14.1 g/dL (12.2-16.2); Lymphocytes % 42.2 % (10-50); Mean Corpuscular HGB Conc 30.7 g/dL (31.8-35.4); Mean Corpuscular Hemoglobin 29.6 pg (27.0-31.2); Mean Corpuscular Volume 96.5 fl (81-99); Mean Platelet Volume 7.5 fl (7.4-10.4); Monocytes # 0.4 K/mm3 (0.1-1.0); Monocytes % 8.8 % (1.7-9.3); Neutrophils # 2.2 K/mm3 (1.8-7.8); Neutrophils % 46.7 % (37.0-80.0); Platelet Count 320 K/mm3 (142-424); Red Blood Count 4.76 M/mm3 (4.20-5.40); Red Cell Distribution Width 13.5 % (11.5-17.5); White Blood Count 4.6 K/mm3 (4.8-10.8)
[2023-06-02 09:07] LABS: Prothrombin Time 9.8 seconds (10.1-12.5)
[2023-06-02 09:18] LABS: Appearance,Urine CLEAR (Clear); Bilirubin,Urine Negative (Negative); Blood, Urine Negative (Negative); Color,Urine YELLOW (Yellow); Glucose,Urine (UA) Negative (Negative); Ketones,Urine Negative (Negative); Leukocyte Esterase,Urine 1+ (Negative); Nitrate,Urine Negative (Negative); PH,Urine 7.5 (5.0-8.5); Protein,Urine Negative (Negative); Specific Gravity, Urine 1.015 (1.005-1.030)
[2023-06-02 09:28] LABS: Bacteria,Urine 1+ /lpf
[2023-06-02 09:34] LABS: Chloride 105 mmol/L (98-107); Potassium 5.4 mmoL/L (3.5-5.1); Sodium 141 mmol/L (136-145)
[2023-06-02 09:37] LABS: Blood Urea Nitrogen 13 mg/dl (7-17); Estimated Glomerular Filt Rate 88 ml/min (>60); GFR (African American) 106 ML/MIN (>60)
[2023-06-02 09:38] LABS: Anion Gap 7.4 mEq/L (5-15); Calcium 8.9 mg/dl (8.4-10.2); Carbon Dioxide 34 mmol/L (22.0-30.0); Glucose 96 mg/dl (74-100)
== END ==
LOC: LAB 08:19
PROVIDERS: PCP Family Medicine; Visit Provider Orthopaedic Surgery
DX: Z01.818 Encounter for other preprocedural examination (principal)
CPT/HCPCS: 36415; 80048; 81001; 85025; 85610; 85730; 87086

== ENCOUNTER → 2023-06-02 14:03 | Outpatient (CLI) | payer MEDICAID, SELFPAY | PROVIDERS: PCP Family Medicine; Visit Provider Physician Assistant | DX: R06.83 Snoring (principal); R40.0 Somnolence; I10 Essential (primary) hypertension; R00.2 Palpitations; R53.1 Weakness; Z72.0 Tobacco use; Z72.89 Other problems related to lifestyle | CPT/HCPCS: G0399 ==

== ENCOUNTER → 2023-06-16 10:31 | Outpatient (CLI) | payer MEDICAID, SELFPAY ==
--- NOTE | 2023-06-16 10:35 | CA_ITS ---
APPROVED REPORT EXAM: Comprehensive 2D, Doppler, and color-flow Echocardiogram Desk Representative: Lavinia Zimmerman RT(R) Ht: 5 ft 3 in Wt: 164lbs BSA: 1.78 BP: 117/77 mmHg Indications: palpitations, HTN, smoker 2D Dimensions LVOT 2.00 cm (M/F) 1.5-2.5 M-Mode Dimensions RVDd 2.50 cm (0.9-2.6) LA Diam 3.30 cm (1.9-4.0) LVDd 4.80 cm (3.5-5.7) Ao Diam 2.60 cm (2.0-3.7) LVDs 3.20 cm (3.5-5.7) AV Cusp 1.40 cm (1.5-2.6) IVSd 0.70 cm (0.6-1.1) PWd 0.60 cm (0.6-1.1) EF (Teich) 62.00% FS 33.30% EDV (Teich) 108.00 mL ESV (Teich) 41.00 mL LV Diastology E/A Ratio 1.3 MED E' 10.70 (< 7 cm/sec) E'/MED E' Ratio 7.50 (>14) LAT E' 17.00 (<10 cm/sec) E/LAT E' Ratio 4.70 (>14) Mitral Valve MV E Max Omari. 80.50 (40-130 cm/s) MV A Velocity 62.20 (40-130 cm/s) E/A Ratio 1.30 Tricuspid Valve TR P. Velocity 231.00 cm/s RAP Estimate 10.00 mmHg RVSP 31.00 mmHg Left Ventricle The left ventricle is normal size. The left ventricular systolic function is normal. The left ventricular ejection fraction is within the normal range. There is normal left ventricular wall thickness. There is normal LV segmental wall motion. The left ventricular diastolic function is normal. LVEF is 55-60%. Right Ventricle The right ventricle is normal size. The right ventricular systolic function is normal. Atria The left atrium size is normal. The right atrium size is normal. There is no Doppler evidence of interatrial shunt. Aortic Valve The aortic valve is normal in structure. There is no aortic valvular stenosis. No aortic regurgitation is present. Mitral Valve The mitral valve is normal in structure. No evidence of mitral valve stenosis. Trace mitral regurgitation. Tricuspid Valve The tricuspid valve leaflets are thin and pliable. Mild tricuspid regurgitation. RVSP is 20-25 mmHg. Pulmonic Valve The pulmonary valve is normal in structure. Trace pulmonic regurgitation. Great Vessels The aortic root is normal in size. The ascending aorta is normal in size. IVC is normal in size and collapses >50% with inspiration. Pericardium There is no pericardial effusion. Other Information Study Quality: Fair Conclusion Normal biventricular systolic function. No significant valvular stenosis or regurgitation. Electronically signed by : Nila Roca MD 06/18/2023 23:02:19
== END ==
LOC: RT 10:32
PROVIDERS: PCP Family Medicine; Visit Provider Physician Assistant
DX: R00.2 Palpitations (principal); I10 Essential (primary) hypertension; R06.83 Snoring; R40.0 Somnolence; R53.1 Weakness; Z72.89 Other problems related to lifestyle
CPT/HCPCS: 93306

== ENCOUNTER 2023-08-07 09:43 | Emergency (ER) | payer MEDICAID, SELFPAY ==
[2023-08-07 09:45] VITALS: BP 134/95; PULSE 100; RESP 16; TEMP 37.1; O2SAT 97; BMI 29.8
--- NOTE | 2023-08-07 09:55 | XR_ITS ---
FINAL REPORT CLINICAL HISTORY: cough smoker x 17 years COMPARISON: 12/27/2020 FINDINGS: TWO-VIEW CHEST The heart size is normal. The mediastinum is normal. The lungs are clear. There is no pneumothorax. Cervical fusion hardware is seen in the lower cervical spine. IMPRESSION: No acute cardiopulmonary process. Reviewed, Interpreted and Dictated by Fly Weems MD Transcribed by Tesha Soto Authenticated and [facility]
--- NOTE | 2023-08-07 09:57 | HMH.EDGENADL ---
Discharge Plan Disposition Patient Disposition: Home, Self-Care Prescriptions Prescriptions: New benzonatate 100 mg capsule 100 mg PO TID PRN (Reason: cough) 5 Days Qty: 20 0RF amoxicillin-pot clavulanate 875-125 mg tablet 1 tab PO BID 10 Days Qty: 20 0RF albuterol sulfate 90 mcg/actuation HFA aerosol inhaler 4 inh inhalation Q4H PRN (Reason: shortness of breath or wheezing) Qty: 8.5 0RF Rx Instructions: 4 puffs every 4 hours for 48 hours then as needed for shortness of breath or wheezing following No Action gabapentin 800 mg tablet 800 mg PO QID buprenorphine-naloxone 8-2 mg tablet, sublingual 1 tab sublingual BID methocarbamol 500 mg tablet 500 mg PO TID PRN oxycodone-acetaminophen 5-325 mg tablet 1 tab PO Q6H methylprednisolone 4 mg tablets,dose pack 4 mg PO DAILY omega-3 fatty acids Capsule 1,000 mg PO DAILY Referrals Follow up/Referrals: Arjun Unger MD [Primary Care Provider] - See instructions Juana Wu MD [Physician] - See instructions Activity Restrictions/Add. Instructions Additional Instructions/Restrictions: Your chest x-ray demonstrated right lower lobe pneumonia today and you most likely have reactive airway disease consistent with COPD given your history of chronic smoking and your exam and improvement with albuterol and steroids. I recommend that you follow-up with our metal painter for further evaluation and treatment of this. I also recommend as discussed that you stop smoking. Return with any respiratory distress or any other concerns. Clinical Impressions Clinical Impression: Reactive airway disease, Encounter for smoking cessation counseling, CAP (community acquired pneumonia) Discharge ED Provider: Mary Montaño General Adult HPI General Chief complaint: Upper Respiratory Infection Stated complaint: cough, congestion, body ache, soa Time Seen by Provider: 08/07/23 09:47 History of Present Illness HPI narrative: Patient is a 53-year-old female with a 17-year history of smoking who presents today with cough body aches and wheezing. States that she has had symptoms for the last 5 days she called her primary care physician and they started her on a Z-[place] which she has been taking for the last 3 days. She states she has been wheezing without any significant improvement. She did have some chest wall discomfort with movement and cough that significant improved with ibuprofen and she is no longer having the symptoms at the moment. No exertional symptoms that she is aware of. No high fevers or respiratory distress. She does not carry diagnosis of COPD. She also has no cardiopulmonary history that she is aware of. Related Data Home Medications Medication Instructions Recorded Confirmed buprenorphine 8 mg-naloxone 2 mg 1 tab sublingual BID . 10/08/22 06/12/23 sublingual tablet gabapentin 800 mg tablet 800 mg PO QID Pain 10/08/22 06/12/23 omega-3 fatty acids 1,000 mg PO DAILY Supplement 11/01/22 06/12/23 methocarbamol 500 mg tablet 500 mg PO TID PRN 06/12/23 06/12/23 methylprednisolone 4 mg tablets in 4 mg PO DAILY 06/12/23 06/12/23 a dose pack oxycodone-acetaminophen 5 mg-325 1 tab PO Q6H 06/12/23 06/12/23 mg tablet Previous Rx's Medication Instructions Recorded albuterol sulfate 90 mcg/actuation 4 inh inhalation Q4H PRN shortness 08/07/23 aerosol inhaler of breath or wheezing #8.5 grams amoxicillin 875 mg-potassium 1 tab PO BID 10 days #20 tabs 08/07/23 clavulanate 125 mg tablet benzonatate 100 mg capsule 100 mg PO TID PRN cough 5 days #20 08/07/23 caps Allergies Allergy/AdvReac Type Severity Reaction Status Date / Time Latex, Natural Rubber Allergy Mild Rash Verified 08/07/23 09:59 cyclobenzaprine Allergy Irritable Verified 08/07/23 09:59 [From Flexeril] [facility] Disclaimer: The information contained in this section may have been updated after the patient was seen, as this
[2023-08-07 11:39] VITALS: BP 138/80; PULSE 94; RESP 20; TEMP 37.1; O2SAT 97
== END 2023-08-07 11:40 | disposition home or self-care (01) ==
PROVIDERS: Emergency Provider Emergency Medicine; PCP Family Medicine
DX: J18.9 Pneumonia, unspecified organism (principal); J45.909 Unspecified asthma, uncomplicated; R06.02 Shortness of breath; R05.9 Cough, unspecified; R09.81 Nasal congestion; F17.290 Nicotine dependence, other tobacco product, uncomplicated; I10 Essential (primary) hypertension; Z71.6 Tobacco abuse counseling
CPT/HCPCS: 71046; 99283

== ENCOUNTER 2023-09-12 08:30 | Outpatient (RCR) | payer MEDICAID, SELFPAY | END 2023-09-12 09:30 | disposition home or self-care (01) | LOC: PT 08:30 | PROVIDERS: PCP Family Medicine; Visit Provider Orthopaedic Surgery | DX: M70.62 Trochanteric bursitis, left hip (principal); M70.61 Trochanteric bursitis, right hip | CPT/HCPCS: 97010; 97014; 97110; 97140; 97163; 97530; G0283 ==

== ENCOUNTER 2023-10-30 10:23 | Outpatient (CLI) | payer MEDICAID, SELFPAY ==
--- NOTE | 2023-10-30 10:28 | MM_ITS ---
PROCEDURE INFORMATION: Exam: MG Bilateral Screening 3D Mammography Exam date and time: 10/30/2023 10:20 AM Age: 53 years old Clinical indication: Screening examination TECHNIQUE: Imaging protocol: Bilateral Screening tomosynthesis and 2D mammography including computer-aided detection (CAD) when performed. COMPARISON: MG MM DIG SCREENING MAMM BI W/CAD 10/28/2022 1:40 PM FINDINGS: MAMMOGRAPHY: Breast composition: There are scattered areas of fibroglandular density. Mass: None. Architectural distortion: None. Calcifications: No suspicious calcifications. Asymmetric density: None. Skin thickening: None. Axillary adenopathy: None. IMPRESSION: No mammographic evidence of malignancy. Annual screening is recommended unless otherwise clinically indicated. ASSESSMENT: BI-RADS Category 1: Negative
== END 2023-10-30 23:59 ==
LOC: RAD 10:24
PROVIDERS: PCP Family Medicine; Visit Provider Family Medicine
DX: Z12.31 Encounter for screening mammogram for malignant neoplasm of breast (principal)
CPT/HCPCS: 77063; 77067

== ENCOUNTER → 2023-11-11 20:29 | Outpatient (CLI) | payer MEDICAID, SELFPAY | LOC: SL 20:30 | PROVIDERS: PCP Family Medicine; Visit Provider Specialist | DX: G47.33 Obstructive sleep apnea (adult) (pediatric) (principal) | CPT/HCPCS: 95810 ==

== ENCOUNTER 2023-11-18 11:02 | Outpatient (CLI) | payer MEDICAID, SELFPAY ==
--- NOTE | 2023-11-18 11:07 | MR_ITS ---
FINAL REPORT CLINICAL HISTORY: BILATERAL LOW BACK PAIN WITH LEG AND FEET PAIN. NUMBNESS AND TINGLING BILATERAL LEGS. FINDINGS: Multiplanar MR imaging of the lumbar spine was performed without contrast. On the sagittal T2-weighted images, multilevel disc degeneration is seen. There is a hemangioma in the L3 vertebral body. The vertebral alignment is normal. There is no evidence of fracture. No bony mass is identified. The conus is seen at approximately the L1 level and has an unremarkable appearance. T12-L1: Unremarkable. L1-2: There is no significant canal stenosis or neural foraminal narrowing. L2-3: There is no significant canal stenosis or neural foraminal narrowing. L3-4: Annular disc bulge with facet arthropathy. There is a left foraminal disc protrusion with mild left neuroforaminal narrowing. L4-5: Annular disc bulge with facet arthropathy. There is moderate bilateral neuroforaminal narrowing. L5-S1: Annular disc bulge with facet arthropathy. There is moderate bilateral neuroforaminal narrowing. IMPRESSION: Multilevel degenerative disc disease with mild to moderate neuroforaminal narrowing as above. Reviewed, Interpreted and Dictated by Carlo Shukla III, MD Transcribed by Aicha Linares Authenticated and [facility]
== END 2023-11-18 23:59 ==
LOC: RAD 11:04
PROVIDERS: PCP Family Medicine; Visit Provider Physician Assistant Medical
DX: M54.50 Low back pain, unspecified (principal)
CPT/HCPCS: 72148; 76376

== ENCOUNTER 2024-03-15 10:23 | Outpatient (CLI) | payer MEDICAID, SELFPAY ==
[2024-03-15 10:44] LABS: Basophils # 0.1 K/mm3 (0-0.2); Basophils % 2.7 % (0.1-2.0); Eosinophils # 0.1 K/mm3 (0.0-0.4); Eosinophils % 2.2 % (0.1-12.0); Hematocrit 40.2 % (37.0-47.0); Lymphocytes # 1.3 K/mm3 (0.7-4.5); Lymphocytes % 41.5 % (10-50); Mean Corpuscular HGB Conc 32.4 g/dL (31.8-35.4); Mean Corpuscular Hemoglobin 29.9 pg (27.0-31.2); Mean Corpuscular Volume 92.5 fl (81-99); Mean Platelet Volume 7.6 fl (7.4-10.4); Monocytes # 0.2 K/mm3 (0.1-1.0); Monocytes % 7.8 % (1.7-9.3); Neutrophils # 1.4 K/mm3 (1.8-7.8); Neutrophils % 45.9 % (37.0-80.0); Platelet Count 238 K/mm3 (142-424); Red Blood Count 4.35 M/mm3 (4.20-5.40); White Blood Count 3.1 K/mm3 (4.8-10.8)
[2024-03-15 11:18] LABS: Anion Gap 6.3 mEq/L (5-15); Blood Urea Nitrogen 7 mg/dl (7-17); Calcium 8.9 mg/dl (8.4-10.2); Carbon Dioxide 30 mmol/L (22.0-30.0); Chloride 105 mmol/L (98-107); Estimated Glomerular Filt Rate 88 ml/min (>60); GFR (African American) 106 ML/MIN (>60); Glucose 128 mg/dl (74-100); Potassium 4.3 mmoL/L (3.5-5.1); Sodium 137 mmol/L (136-145)
== END 2024-03-15 23:59 | disposition home or self-care (01) ==
LOC: LAB 10:24
PROVIDERS: Physician Assistant Medical; PCP Family Medicine; Visit Provider Orthopaedic Surgery
DX: G56.00 Carpal tunnel syndrome, unspecified upper limb (principal)
CPT/HCPCS: 36415; 80048; 85025

== ENCOUNTER 2024-04-15 08:01 | Outpatient (CLI) | payer MEDICAID, SELFPAY ==
[2024-04-15 08:50] VITALS: PULSE 80; PULSE 81
[2024-04-15] MEDS: ALBUTEROL 0.083% 2.5 MG/3 ML NEB IH (08:50)
== END 2024-04-15 23:59 | disposition home or self-care (01) ==
LOC: RT 08:01
PROVIDERS: PCP Family Medicine; Visit Provider Internal Medicine Pulmonary Disease
DX: R06.09 Other forms of dyspnea (principal)
CPT/HCPCS: 94060; 94618; 94640; 94726; 94729; J7613

== ENCOUNTER 2024-05-20 14:53 | Emergency (ER) | payer MEDICAID, SELFPAY ==
[2024-05-20 15:51] VITALS: BP 148/95; PULSE 73; RESP 16; TEMP 36.8; O2SAT 99; BMI 27.8
[2024-05-20 15:55] LABS: UTC Strep Screen (Rapid) Negative (Negative)
--- NOTE | 2024-05-20 15:57 | ED_ITS ---
Discharge Plan Disposition Patient Disposition: Home, Self-Care Condition: Good Prescriptions Prescriptions: New azithromycin [Zithromax] 250 mg tablet 250 mg PO UD DOSE PK Qty: 6 0RF Rx Instructions: Take two (2) tablets today, then one (1) tablet days #2 thru #5 benzonatate 100 mg capsule 100 mg PO TIDP PRN (Reason: Cough) Qty: 30 0RF No Action gabapentin 800 mg tablet 800 mg PO QID buprenorphine-naloxone 8-2 mg tablet, sublingual 1 tab sublingual BID PRN (Reason: .) budesonide-formoterol [Symbicort] 80-4.5 mcg/actuation HFA aerosol inhaler 1 inh inhalation QID PRN (Reason: shortness of breath or wheezing) 90 Days Qty: 10.2 2RF meloxicam 15 mg tablet 15 mg PO DAILY phentermine 37.5 mg tablet 37.5 mg PO DAILY Referrals Follow up/Referrals: Arjun Unger MD [Primary Care Provider] - See instructions Activity Restrictions/Add. Instructions Additional Instructions/Restrictions: Drink plenty of fluids. Take tylenol or ibuprofen for pain or fever. Take the medications as directed. Finish the steroids that you are already on. Follow up with your regular doctor. GO TO THE ER FOR ANY WORSENING SYMPTOMS Clinical Impressions Clinical Impression: Sinusitis Instructions Patient Instructions: Sinusitis, DI for Sinusitis Print Language Print Language: Kiswahili Discharge ED Provider: Aristides Parson [facility] [place] HPI General Stated complaint: sore throat, cough, noam, weak Mode of Arrival: Ambulatory Source of Information: Patient Limitations: No Limitations Time Seen by Provider: 05/20/24 15:57 Description of Symptoms (Recalled from Triage Doc. by RN): Patient reports sore throat, cough, congestion, fatigue, chills. HEENT Symptoms (Recalled from RN notes): Yes Resp Symptoms (Recalled from RN notes): No Skin Symptoms (Recalled from RN notes): No MS Symptoms (Recalled from RN notes): No Functional Status (Recalled from RN notes): wnl History of Present Illness Provider Complaint: She states that for the past 4 days she has had sinus congestion, scratchy throat and cough. She took a home covid-19 test that was negative. She refusing any more tests today. Related Data Home Medications ?Medication ?Instructions ?Recorded ?Confirmed gabapentin 800 mg tablet 800 mg PO QID Pain 10/08/22 04/23/24 phentermine 37.5 mg tablet 37.5 mg PO DAILY 10/02/23 04/23/24 buprenorphine 8 mg-naloxone 2 mg 1 tab sublingual BID PRN . 11/20/23 04/23/24 sublingual tablet meloxicam 15 mg tablet 15 mg PO DAILY 11/20/23 04/23/24 Previous Rx's ?Medication ?Instructions ?Recorded budesonide-formoterol HFA 80 1 inh inhalation QID PRN shortness 10/08/23 mcg-4.5 mcg/actuation aerosol of breath or wheezing 90 days inhaler (Symbicort) #10.2 grams azithromycin 250 mg tablet 250 mg PO UD DOSE PK #6 tabs 05/20/24 (Zithromax) benzonatate 100 mg capsule 100 mg PO TIDP PRN Cough #30 caps 05/20/24 Allergies Allergy/AdvReac Type Severity Reaction Status Date / Time Latex, Natural Rubber Allergy Mild Rash Verified 04/23/24 07:33 cyclobenzaprine Allergy Irritable Verified 04/23/24 07:33 [From Flexeril] Worker's Comp Is this a Worker's Comp case?: No [facility] Disclaimer: The information contained in this section may have been updated after the patient was seen, as this information can be updated by other users. Medical History (Updated 05/20/24 @ 16:28 by Aristides Parson APRN) Has been smoking tobacco for 15 years Asthma Allergic rhinitis Acute sinusitis Dyspnea on exertion HTN (hypertension) Depression Urinary tract infection Pneumonia Bronchitis Sinus headache Allergies History of anemia Hot flashes due to menopause LLQ pain Abnormal uterine bleeding Degenerative disc disease Surgical History (Updated 04/23/24 @ 07:35 by Leonor Reilly) History of carpal tunnel repair Hx of dilation and curettage History of endometrial ablation Hx of appendectomy History of bilateral tubal ligation Family History Other Alzheimers disease Cancer Hypertension Social History Smoking Status: Current every day smoker tobacco type: e-cigarettes alcohol intake: current alcohol intake frequency: holidays/special occasions only substance use type: former substance user and opiates current occupational status: unemployed Travel in the last 8 weeks: None household members: spouse housing: house marital status: education level: college service: No caffeine: Yes special nic needs: No agree to transfusion: No do you feel safe at home: Yes victim of physical abuse: No victim of emotional abuse: No victim of sexual abuse: No would you like helpful sources: No ROS Obtained: Yes All systems reviewed & no additional complaints except as documented Constitutional Constitutional: Reports poor appetite Eyes Eyes: Reports system reviewed and no additional complaints, except as documented ENT Ears, Nose, Mouth, and Throat: Reports as per HPI Cardiovascular Cardiovascular: Reports system reviewed and no additional complaints, except as documented and Denies chest pain Respiratory Respiratory: Denies shortness of breath, Denies chest congestion, Reports cough, Denies stridor and Denies wheezing Gastrointestinal Gastrointestingal: Reports system reviewed and no additional complaints, except as documented; Denies abdominal pain, diarrhea or vomiting Musculoskeletal Musculoskeletal: Reports system reviewed and no additional complaints, except as documented and Denies arthralgias Integumentary/Breasts Skin/Breast: Reports system reviewed and no additional complaints, except as documented and Denies rash Neurologic Neurologic: Denies paresthesias Allergic/Immunologic Allergic/Immunologic: Denies wheezing Physical Exam General General appearance: alert and in no apparent distress Eye Eye exam: Present normal appearance, PERRL and EOMI ENT ENT exam: Present mucous membranes moist and normal external ear exam Expanded ENT Exam External ear exam: Present normal external inspection TM/Canal exam: Bilateral TM: erythema and bulging Nose exam: Absent sinus tenderness Nasal speculum exam: Bilateral: normal Mouth exam: Present normal external inspection; Absent drooling Teeth exam: Present normal inspection Throat exam: Present tonsillar erythema and tonsillomegaly Neck Neck exam: Present normal inspection, full ROM and trachea midline; Absent tenderness, lymphadenopathy or thyromegaly Chest Chest inspection: Present normal inspection and symmetric chest wall rise; Absent tenderness or rash Respiratory Respiratory exam: Present normal lung sounds bilaterally; Absent respiratory distress, wheezes, stridor or accessory muscle use Cardiovascular Cardiovascular exam: Present regular rate, normal rhythm and normal heart sounds Abdominal Exam Abdominal exam: Present soft; Absent distention, tenderness, guarding, rebound or rigidity Extremities Exam Extremities exam: Present normal inspection, full ROM and normal capillary refill; Absent tenderness or calf tenderness Back Exam Back exam: Present normal inspection and full ROM; Absent tenderness Neurological Exam Neurological exam: Present alert and oriented X3 Psychiatric Psychiatric exam: Present normal affect and normal mood Skin Skin exam: Present warm, dry, intact and normal color Lymphatic Lymphatic Findings: no adenopathy Medical Decision Making Medical Records Medical records reviewed: No I reviewed the patient's medical records. Elmer Inquiry Pt receiving controlled substance: No Vital Signs: 05/20/24 15:51 Temperature 98.2 F Temperature Source Oral Pulse Rate [Radial] 73 Respiratory Rate 16 Blood Pressure [Right Arm] 148/95 H Blood Pressure Mean [Right Arm] 112 Blood Pressure Source [Right Arm] Automatic Cuff Blood Pressure Position [Right Arm] Sitting 02 Sat by Pulse Oximetry 99 Oxygen Delivery Method Room Air Lab Data Lab results reviewed: Yes I reviewed the patient's lab results. Lab Results 05/20/24 15:50: Strep Scn Rapid Clinic Negative Orders (Tests/Meds): ORDERS Category Date Time Status Strep Screen Confirmation Stat Micro 05/20/24 15:50 Received
[2024-05-20 16:41] VITALS: BP 148/95; PULSE 73; RESP 16; TEMP 36.8; O2SAT 99
== END 2024-05-20 16:42 | disposition home or self-care (01) ==
PROVIDERS: Emergency Provider Nurse Practitioner Family; PCP Family Medicine
DX: J01.90 Acute sinusitis, unspecified (principal); R07.0 Pain in throat; R05.9 Cough, unspecified
CPT/HCPCS: 87880; 99212; 99214; G0463

== ENCOUNTER 2024-06-25 12:20 | Emergency (ER) | payer MEDICAID, SELFPAY ==
--- NOTE | 2024-06-25 13:05 | EXP.UTC ---
Discharge Plan Disposition Patient Disposition: Home, Self-Care Condition: Good Prescriptions Prescriptions: New triamcinolone acetonide 0.1 % cream 1 applic topical BID PRN (Reason: itching) Qty: 30 0RF methylprednisolone 4 mg Tablets,Dose Pack 4 mg PO DIRECTED 6 Days Qty: 21 0RF Rx Instructions: Take 1 pack as directed for 6 days No Action gabapentin 800 mg tablet 800 mg PO QID buprenorphine-naloxone 8-2 mg tablet, sublingual 1 tab sublingual BID PRN (Reason: .) budesonide-formoterol [Symbicort] 80-4.5 mcg/actuation HFA aerosol inhaler 1 inh inhalation QID PRN (Reason: shortness of breath or wheezing) 90 Days Qty: 10.2 2RF meloxicam 15 mg tablet 15 mg PO DAILY phentermine 37.5 mg tablet 37.5 mg PO DAILY sodium,potassium,mag sulfates [Suprep Bowel Prep Kit] 17.5-3.13-1.6 gram recon soln See Rx Instructions PO .COMPLEX Qty: 354 0RF Rx Instructions: DILUTE; drink full amount early evening before AND next morning at least 2 hr before procedure; follow w 960 mL water PO azithromycin [Zithromax] 250 mg tablet 250 mg PO UD DOSE PK Qty: 6 0RF Rx Instructions: Take two (2) tablets today, then one (1) tablet days #2 thru #5 benzonatate 100 mg capsule 100 mg PO TIDP PRN (Reason: Cough) Qty: 30 0RF Referrals Follow up/Referrals: Arjun Unger MD [Primary Care Provider] - See instructions Activity Restrictions/Add. Instructions Additional Instructions/Restrictions: Try to identify and avoid contact with the offending substance. Don't put the topical steroids (triamcinolone) on your face or your groin. Follow up with your regular doctor. GO TO THE ER FOR ANY WORSENING SYMPTOMS OR CONCERNS Clinical Impressions Clinical Impression: Contact dermatitis Instructions Patient Instructions: DI for Contact Dermatitis, Triamcinolone Topical, Methylprednisolone Print Language Print Language: Maori Discharge ED Provider: Aristides Parson [facility] [place] HPI General Stated complaint: Rash on R elbow Time Seen by Provider: 06/25/24 13:04 Related Data Home Medications ?Medication ?Instructions ?Recorded ?Confirmed gabapentin 800 mg tablet 800 mg PO QID Pain 10/08/22 04/23/24 phentermine 37.5 mg tablet 37.5 mg PO DAILY 10/02/23 06/25/24 buprenorphine 8 mg-naloxone 2 mg 1 tab sublingual BID PRN . 11/20/23 04/23/24 sublingual tablet meloxicam 15 mg tablet 15 mg PO DAILY 11/20/23 06/25/24 Previous Rx's ?Medication ?Instructions ?Recorded budesonide-formoterol HFA 80 1 inh inhalation QID PRN shortness 10/08/23 mcg-4.5 mcg/actuation aerosol of breath or wheezing 90 days inhaler (Symbicort) #10.2 grams azithromycin 250 mg tablet 250 mg PO UD DOSE PK #6 tabs 05/20/24 (Zithromax) benzonatate 100 mg capsule 100 mg PO TIDP PRN Cough #30 caps 05/20/24 sodium,potassium,mag sulfates 17.5 See Rx Instructions PO .COMPLEX 05/31/24 gram-3.13 gram-1.6 gram oral soln #354 mL (Suprep Bowel Prep Kit) methylprednisolone 4 mg tablets in 4 mg PO DIRECTED 6 days #21 tabs 06/25/24 a dose pack triamcinolone acetonide 0.1 % 1 applic topical BID PRN itching 06/25/24 topical cream #30 grams Allergies Allergy/AdvReac Type Severity Reaction Status Date / Time Latex, Natural Rubber Allergy Mild Rash Verified 04/23/24 07:33 cyclobenzaprine Allergy Irritable Verified 04/23/24 07:33 [From Flexeril] [facility] Disclaimer: The information contained in this section may have been updated after the patient was seen, as this information can be updated by other users. Medical History (Updated 06/25/24 @ 13:27 by Aristides Parson APRN) Has been smoking tobacco for 15 years Asthma Allergic rhinitis Acute sinusitis Dyspnea on exertion HTN (hypertension) Depression Urinary tract infection Pneumonia Bronchitis Sinus headache Allergies History of anemia Hot flashes due to menopause LLQ pain Abnormal uterine bleeding Degenerative disc disease Surgical History (Updated 04/23/24 @ 07:35 by Leonor Reilly) History of carpal tunnel repair Hx of dilation and curettage History of endometrial ablation Hx of appendectomy History of bilateral tubal ligation Family History Other Alzheimers disease Cancer Hypertension Social History Smoking Status: Current every day smoker tobacco type: e-cigarettes alcohol intake: current alcohol intake frequency: holidays/special occasions only substance use type: former substance user and opiates current occupational status: unemployed Travel in the last 8 weeks: None household members: spouse housing: house marital status: education level: college service: No caffeine: Yes special nic needs: No agree to transfusion: No do you feel safe at home: Yes victim of physical abuse: No victim of emotional abuse: No victim of sexual abuse: No would you like helpful sources: No ROS Obtained: Yes All systems reviewed & no additional complaints except as documented Constitutional Constitutional: Denies chills and Denies fever(s) Eyes Eyes: Denies eye discharge ENT Ears, Nose, Mouth, and Throat: Denies dizziness, Denies otalgia and Denies sore throat Cardiovascular Cardiovascular: Denies chest pain Respiratory Respiratory: Denies shortness of breath, Denies chest congestion, Denies cough, Denies stridor and Denies wheezing Gastrointestinal Gastrointestingal: Denies nausea or vomiting Musculoskeletal Musculoskeletal: Reports system reviewed and no additional complaints, except as documented and Denies arthralgias Integumentary/Breasts Skin/Breast: Reports as per HPI and Reports rash Neurologic Neurologic: Denies dizziness and Denies paresthesias Allergic/Immunologic Allergic/Immunologic: Denies wheezing Physical Exam General General appearance: alert and in no apparent distress Head Head exam: atraumatic, normocephalic and normal inspection Eye Eye exam: Present normal appearance, PERRL and EOMI ENT ENT exam: Present normal exam, normal oropharynx, mucous membranes moist, TM's normal bilaterally and normal external ear exam Neck Neck exam: Present normal inspection, full ROM and trachea midline; Absent meningismus or lymphadenopathy Chest Chest inspection: Present normal inspection and symmetric chest wall rise; Absent tenderness Respiratory Respiratory exam: Present normal lung sounds bilaterally; Absent respiratory distress Cardiovascular Cardiovascular exam: Present regular rate and normal rhythm; Absent JVD Abdominal Exam Abdominal exam: Present soft and normal bowel sounds; Absent distention, tenderness or guarding Extremities Exam Extremities exam: Present normal inspection, full ROM and normal capillary refill; Absent calf tenderness Back Exam Back exam: Present normal inspection; Absent tenderness Neurological Exam Neurological exam: Present alert and oriented X3 Psychiatric Psychiatric exam: Present normal affect and normal mood Skin Skin exam: Present rash Lymphatic Lymphatic Findings: no adenopathy Medical Decision Making Medical Records Medical records reviewed: No I reviewed the patient's medical records. Screening: Per USPSTF and CDC recommendations, given the prevalence of disease in our region, it is our hospital?s policy to screen for HIV and viral Hepatitis for all patients aged 18 and over and those with ongoing risk factors. Elmer Inquiry Pt receiving controlled substance: No
[2024-06-25 13:08] VITALS: BP 129/80; PULSE 74; RESP 20; TEMP 36.8; O2SAT 99; BMI 27.4
[2024-06-25 13:40] VITALS: BP 129/80; PULSE 74; RESP 20; TEMP 36.8
== END 2024-06-25 13:41 | disposition home or self-care (01) ==
PROVIDERS: Emergency Provider Nurse Practitioner Family; PCP Family Medicine
DX: L25.9 Unspecified contact dermatitis, unspecified cause (principal)
CPT/HCPCS: 99213; G0381

== ENCOUNTER 2024-09-01 14:28 | Emergency (ER) | payer MEDICAID, SELFPAY ==
[2024-09-01 14:30] VITALS: BP 145/83; PULSE 73; RESP 15; TEMP 36.8; O2SAT 100; BMI 29.2
--- NOTE | 2024-09-01 14:33 | ED_ITS ---
<Statement entered by Edmond Hogan MD - 09/01/24 15:10> I was consulted by the GAURI, and we discussed the complexity of the problems being addressed. I approved the treatment and management plan for this patient's care in the emergency department, thus performing a substantive portion of the medical decision making. Edmond Hogan MD Discharge Plan Disposition Patient Disposition: Home, Self-Care Condition: Good Prescriptions Prescriptions: New methocarbamol 750 mg tablet 750 mg PO Q6H PRN (Reason: muscle spasm) Qty: 20 0RF lidocaine 5 % adhesive patch,medicated 1 patch topical DAILY Qty: 30 0RF Rx Instructions: leave on most painful area for up to 12 hrs No Action gabapentin 800 mg tablet 800 mg PO QID buprenorphine-naloxone 8-2 mg tablet, sublingual 1 tab sublingual BID PRN (Reason: .) meloxicam 15 mg tablet 15 mg PO DAILY budesonide-formoterol [Symbicort] 160-4.5 mcg/actuation HFA aerosol inhaler 1 puff inhalation BID 90 Days Qty: 10.2 2RF montelukast [Singulair] 10 mg tablet 10 mg PO DAILY Qty: 90 2RF albuterol sulfate [Ventolin HFA] 90 mcg/actuation HFA aerosol inhaler 2 inh inhalation Q6H PRN (Reason: shortness of breath or wheezing) 90 Days Qty: 18 3RF benzonatate 100 mg capsule 100 mg PO TIDP PRN (Reason: Cough) Qty: 30 0RF triamcinolone acetonide 0.1 % cream 1 applic topical BID PRN (Reason: itching) Qty: 30 0RF Referrals Follow up/Referrals: Arjun Unger MD [Primary Care Provider] - See instructions Activity Restrictions/Add. Instructions Additional Instructions/Restrictions: As we discussed I have sent Lidoderm patch and muscle relaxers to your pharmacy. Please follow-up with Dr. Toney for reevaluation of your sciatic pain. Return to the ER for any worsening signs or symptoms including intractable numbness muscle weakness loss of bowel or bladder etc. Follow-up with your PCP next week for recheck. Clinical Impressions Clinical Impression: Sciatica of left side Instructions Patient Instructions: DI for Low Back Pain Print Language Print Language: [place] Island[place] Discharge ED Provider: Mary Montaño General Adult HPI General Chief complaint: Back Pain/Injury Stated complaint: Lower back pain Time Seen by Provider: 09/01/24 14:32 History of Present Illness HPI narrative: Patient presents for evaluation of a sciatica flare. Patient has longstanding degenerative disc disease and has periodic flares of back pain with sciatica symptoms. She follows with Dr. Toney of [facility] and has had other previous hydrocortisone injections by Dr. Toney in the past. She has never actually had injections however for sciatica before. She normally treats this with [id number] Salonpas patches from [employer] and 800 mg of ibuprofen however that has not helped at this time. She denies however any loss of motor or sensory in her left lower extremity she denies loss of bowel or bladder function. She denies any chest pain shortness of breath fever chills hemoptysis hematochezia melena nausea vomit diarrhea. Related Data Home Medications ?Medication ?Instructions ?Recorded ?Confirmed gabapentin 800 mg tablet 800 mg PO QID Pain 10/08/22 07/13/24 buprenorphine 8 mg-naloxone 2 mg 1 tab sublingual BID PRN . 11/20/23 07/13/24 sublingual tablet meloxicam 15 mg tablet 15 mg PO DAILY 11/20/23 07/13/24 Previous Rx's ?Medication ?Instructions ?Recorded benzonatate 100 mg capsule 100 mg PO TIDP PRN Cough #30 caps 05/20/24 triamcinolone acetonide 0.1 % 1 applic topical BID PRN itching 06/25/24 topical cream #30 grams albuterol sulfate 90 mcg/actuation 2 inh inhalation Q6H PRN shortness 07/13/24 aerosol inhaler (Ventolin HFA) of breath or wheezing 90 days #18 grams budesonide-formoterol HFA 160 1 puff inhalation BID 90 days 07/13/24 mcg-4.5 mcg/actuation aerosol #10.2 grams inhaler (Symbicort) montelukast 10 mg tablet 10 mg PO DAILY #90 tabs 07/13/24 (Singulair) lidocaine 5 % topical patch 1 patch topical DAILY #30 ea 09/01/24 methocarbamol 750 mg tablet 750 mg PO Q6H PRN muscle spasm #20 09/01/24 tabs Allergies Allergy/AdvReac Type Severity Reaction Status Date / Time Latex, Natural Rubber Allergy Mild Rash Verified 07/13/24 13:15 cyclobenzaprine (From Allergy Irritable Verified 07/13/24 13:15 Flexeril) [facility] Disclaimer: The information contained in this section may have been updated after the patient was seen, as this information can be updated by other users. Medical History Has been smoking tobacco for 15 years Asthma Allergic rhinitis Acute sinusitis Dyspnea on exertion HTN (hypertension) Depression Urinary tract infection Pneumonia Bronchitis Sinus headache Allergies History of anemia Hot flashes due to menopause LLQ pain Abnormal uterine bleeding Degenerative disc disease Surgical History History of carpal tunnel repair Hx of dilation and curettage History of endometrial ablation Hx of appendectomy History of bilateral tubal ligation Family History Other Alzheimers disease Cancer Hypertension Social History Smoking Status: Never smoker alcohol intake: current alcohol intake frequency: holidays/special occasions only substance use type: former substance user and opiates current occupational status: unemployed Travel in the last 8 weeks: None household members: spouse housing: house marital status: education level: college service: No caffeine: Yes special nic needs: No agree to transfusion: No do you feel safe at home: Yes victim of physical abuse: No victim of emotional abuse: No victim of sexual abuse: No would you like helpful sources: No Have you lived/traveled outside US in past 30 days?: No Contact w/someone who lives/traveled outside US past 30 days?: No Exposure to someone with infectious disease in past 14 days?: No Do you have a fever (greater than 100.4 F or 38 C)?: No Have you tested positive for COVID-19: No Exposed to someone with COVID-19 in past 14 days?: No Do you have a sore throat?: No Do you have a cough?: No Do you have any weakness?: No Do you have any diarrhea?: No Are you experiencing any unusual bleeding?: No Do you have any muscle aches/pain?: No Do you have any abdominal pain?: No Are you experiencing loss of taste or smell?: No Other Medical History Have you received the Flu Vaccine for this season: No Have you received the Pneumonia Vaccine: No ROS Obtained: Yes Systems reviewed as appropriate & no additional complaints except as documented Physical Exam General General appearance: alert and in no apparent distress Respiratory Respiratory exam: Present normal lung sounds bilaterally Cardiovascular Cardiovascular exam: Present regular rate and normal rhythm Neurological Exam Neurological exam: Present alert and oriented X3 Medical Decision Making Medical Records Medical records reviewed: Yes I reviewed the patient's medical records. Screening: Per USPSTF and CDC recommendations, given the prevalence of disease in our region, it is our hospital?s policy to screen for HIV and viral Hepatitis for all patients aged 18 and over and those with ongoing risk factors. Elmer Inquiry Pt receiving controlled substance: No Vital Signs: 09/01/24 14:30 Temperature 98.3 F Temperature Source Oral Pulse Rate [Left Radial] 73 Respiratory Rate 15 Blood Pressure [Right Arm] 145/83 H Blood Pressure Mean [Right Arm] 103 02 Sat by Pulse Oximetry 100 Oxygen Delivery Method Room Air Lab Data Lab results reviewed: Yes I reviewed the patient's lab results. Orders (Tests/Meds): ED MEDICATIONS Generic Name Dose Route Start Last Admin Trade Name [place] PRN Reason Stop Dose Admin Lidocaine 1 each 09/01/24 14:46 Lidocaine 5% Transdermal Patch TP 09/01/24 14:47 ONCE ONE Methocarbamol 500 mg 09/01/24 14:46 Methocarbamol 500mg Tablet PO 09/01/24 14:47 ONCE ONE Methylprednisolone Sodium Succinate 125 mg 09/01/24 14:46 Methylprednisolone Sod Succ 125mg Vial IM 09/01/24 14:47 ONCE ONE ORDERS Category Date Time Status HIV (1&2) Antibody Rapid Stat Lab 09/01/24 14:40 Ordered Hep C Ab with Reflex to RNA Stat Lab 09/01/24 14:40 Ordered Medical Decision Narrative: In summary patient is a 54-year-old female who presents to the emergency department for evaluation of left-sided sciatica flare. Patient is dynamically stable upon arrival, afebrile. Physical exam is remarkable for left-sided paraspinous tenderness along with some radiation down the left leg however patient has full range of motion albeit painful, she has motor and sensory intact to the toes. Patient is able to ambulate without assistance.. Differential diagnosis includes muscle spasm versus sciatica etc. Initial workup with labs and imaging was considered however patient has no red flags for anything more serious or sinister than what she describes and she very much feels that this is a flare that she is experienced before. Patient initially was only seeking a potential hydrocortisone injection however I had an interactive discussion with the patient in which I described that that is not something that we can offer in the emergency department is usually done with a specialist in the outpatient setting. I did offer to give her systemic single dose of steroids muscle relaxers and Lidoderm.. Via patient directed decision making and discharge patient is very comfortable with that plan therefore she will be given Robaxin 125 of Solu-Medrol IM and a Lidoderm patch applied here with prescriptions for Robaxin and Lidoderm sent to her pharmacy. Patient instructed to follow-up next week with [facility] and her PCP for recheck with strict return precautions. Critical Care Critical Care Time Critical Care Time: No
[2024-09-01 15:00] VITALS: BP 105/82; PULSE 74; O2SAT 98
[2024-09-01] MEDS: METHOCARBAMOL 500MG TABLET 500 MG PO (15:13)
[2024-09-01] MEDS: LIDOCAINE 5% TRANSDERMAL PATCH 1 EACH TP (15:13)
[2024-09-01] MEDS: METHYLPREDNISOLONE SOD SUCC 125MG VIAL 125 MG IM (15:14)
[2024-09-01 15:24] VITALS: BP 105/82; PULSE 73; RESP 18; TEMP 36.5; O2SAT 99
== END 2024-09-01 15:25 | disposition home or self-care (01) ==
PROVIDERS: Emergency Provider Emergency Medicine; PCP Family Medicine
DX: M54.32 Sciatica, left side (principal); M54.50 Low back pain, unspecified
CPT/HCPCS: 96372; 99283; J2919

== ENCOUNTER 2024-11-17 07:10 | Emergency (ER) | payer MEDICAID, SELFPAY ==
[2024-11-17 07:17] VITALS: BP 138/83; PULSE 86; RESP 16; TEMP 36.7; O2SAT 96; BMI 29.2
--- NOTE | 2024-11-17 07:20 | PC.NURSE ---
DR SAUCEDO AT BEDSIDE
--- NOTE | 2024-11-17 07:23 | XR_ITS ---
FINAL REPORT TECHNIQUE: Chest PA & Lateral CLINICAL HISTORY: Cough, subjective fever COMPARISON: 08/07/2023 FINDINGS: 2 views of the chest were performed. The heart size is normal. The mediastinum is within normal limits. There is no acute cardiopulmonary process. There are no pleural effusions. There is no pneumothorax. The bony thorax appears intact. Cervical fusion hardware is noted in the lower cervical spine. IMPRESSION: No acute cardiopulmonary process. Reviewed, Interpreted and Dictated by Fly Weems MD Transcribed by Betzaida Jacobs Authenticated and [facility]
--- NOTE | 2024-11-17 07:23 | HMH.EDGENADL ---
Discharge Plan Disposition Patient Disposition: Home, Self-Care Condition: Good Prescriptions Prescriptions: New Afrin (oxymetazoline) 0.05 % mist 2 spray intranasal BID PRN (Reason: nasal congestion) 3 Days Qty: 15 0RF No Action gabapentin 800 mg tablet 800 mg PO QID buprenorphine-naloxone 8-2 mg tablet, sublingual 1 tab sublingual BID PRN (Reason: .) budesonide-formoterol [Symbicort] 160-4.5 mcg/actuation HFA aerosol inhaler 1 puff inhalation BID 90 Days Qty: 10.2 2RF montelukast [Singulair] 10 mg tablet 10 mg PO DAILY Qty: 90 2RF Referrals Follow up/Referrals: Arjun Unger MD [Primary Care Provider] - See instructions Activity Restrictions/Add. Instructions Additional Instructions/Restrictions: You can take Afrin nasal spray as prescribed for up to 3 days. You can also take Tylenol and ibuprofen every 6 hours as needed to help with symptoms. Follow-up with your primary care physician if symptoms do not improve or if they last longer than 10 days. If you develop any new or worsening symptoms, or if you become concerned for your health for any reason, return to the emergency department for evaluation Clinical Impressions Clinical Impression: Upper respiratory infection, viral Print Language Print Language: [place] Discharge ED Provider: Danial Millan Adult HPI General Chief complaint: Upper Respiratory Infection Stated complaint: chills, body aches, sinus pressure Time Seen by Provider: 11/17/24 07:18 Mode of Arrival: Ambulatory Source of Information: Patient Description of Symptoms (Recalled from ER Triage Doc. by RN): Patient reports possible sinus infection. Complaint of chills, body aches and congestion since yesterday. History of Present Illness HPI narrative: Kaitlynn Eisenberg is a 54y female with a past medical history of sinusitis, asthma, hypertension who presents to the emergency department for complaints of sinus pressure and sinus drainage as well as a cough. Patient states that her symptoms started yesterday with drainage from her nose as well as pressure in her nose. She also reports a dry cough that began at the same time. She reports objective fever at home with chills but did not take her temperature. She states that she has had multiple sinus infections in the past and states that this is usually how it starts. She does not know if she has had any sick contacts. She does not have any chest pain, nausea, vomiting, abdominal pain or diarrhea. Related Data Home Medications ?Medication ?Instructions ?Recorded ?Confirmed gabapentin 800 mg tablet 800 mg PO QID Pain 10/08/22 11/17/24 buprenorphine 8 mg-naloxone 2 mg 1 tab sublingual BID PRN . 11/20/23 11/17/24 sublingual tablet Previous Rx's ?Medication ?Instructions ?Recorded budesonide-formoterol HFA 160 1 puff inhalation BID 90 days 07/13/24 mcg-4.5 mcg/actuation aerosol #10.2 grams inhaler (Symbicort) montelukast 10 mg tablet 10 mg PO DAILY #90 tabs 07/13/24 (Singulair) oxymetazoline 0.05 % nasal mist 2 spray intranasal BID PRN nasal 11/17/24 (Afrin (oxymetazoline)) congestion 3 days #15 mL Allergies Allergy/AdvReac Type Severity Reaction Status Date / Time Latex, Natural Rubber Allergy Mild Rash Verified 07/13/24 13:15 cyclobenzaprine (From Allergy Irritable Verified 07/13/24 13:15 Flexeril) [facility] Disclaimer: The information contained in this section may have been updated after the patient was seen, as this information can be updated by other users. Medical History Has been smoking tobacco for 15 years Asthma Allergic rhinitis Acute sinusitis Dyspnea on exertion HTN (hypertension) Depression Urinary tract infection Pneumonia Bronchitis Sinus headache Allergies History of anemia Hot flashes due to menopause LLQ pain Abnormal uterine bleeding Degenerative disc disease Surgical History History of carpal tunnel repair Hx of dilation and curettage History of endometrial ablation Hx of appendectomy History of bilateral tubal ligation Family History Other Alzheimers disease Cancer Hypertension Social History Smoking Status: Never smoker alcohol intake: current alcohol intake frequency: holidays/special occasions only substance use type: former substance user and opiates current occupational status: unemployed Travel in the last 8 weeks: None household members: spouse housing: house marital status: education level: college service: No caffeine: Yes special nic needs: No agree to transfusion: No do you feel safe at home: Yes victim of physical abuse: No victim of emotional abuse: No victim of sexual abuse: No would you like helpful sources: No Have you lived/traveled outside US in past 30 days?: No Contact w/someone who lives/traveled outside US past 30 days?: No Exposure to someone with infectious disease in past 14 days?: No Do you have a fever (greater than 100.4 F or 38 C)?: No Have you tested positive for COVID-19: No Exposed to someone with COVID-19 in past 14 days?: No Do you have a sore throat?: No Do you have a cough?: Yes Do you have any weakness?: No Do you have any diarrhea?: No Are you experiencing any unusual bleeding?: No Do you have any muscle aches/pain?: No Do you have any abdominal pain?: No Are you experiencing loss of taste or smell?: No Other Medical History Have you received the Flu Vaccine for this season: No Have you received the Pneumonia Vaccine: No ROS Obtained: Yes Systems reviewed as appropriate & no additional complaints except as documented Physical Exam General General appearance: alert and in no apparent distress Head Head exam: atraumatic Eye Eye exam: Present normal appearance ENT ENT exam: Present normal external ear exam Neck Neck exam: Present full ROM and other (Nasal congestion but no tenderness over the maxillary or frontal sinuses) Chest Chest inspection: Present symmetric chest wall rise Respiratory Respiratory exam: Present normal lung sounds bilaterally; Absent respiratory distress, wheezes or stridor Cardiovascular Cardiovascular exam: Present regular rate and normal rhythm Abdominal Exam Abdominal exam: Present soft; Absent tenderness or guarding Extremities Exam Extremities exam: Present normal inspection Back Exam Back exam: Present normal inspection Neurological Exam Neurological exam: Present alert and oriented X3 Psychiatric Psychiatric exam: Present normal affect Skin Skin exam: Present warm and dry Medical Decision Making Medical Records Screening: Per USPSTF and CDC recommendations, given the prevalence of disease in our region, it is our hospital?s policy to screen for HIV and viral Hepatitis for all patients aged 18 and over and those with ongoing risk factors. Elmer Inquiry Pt receiving controlled substance: No Vital Signs: 11/17/24 07:17 Temperature 98.0 F Temperature Source Oral Pulse Rate [Radial] 86 Respiratory Rate 16 Blood Pressure [Right Arm] 138/83 Blood Pressure Mean [Right Arm] 101 Blood Pressure Source [Right Arm] Automatic Cuff Blood Pressure Position [Right Arm] Sitting 02 Sat by Pulse Oximetry 96 Oxygen Delivery Method Room Air Orders (Tests/Meds): ED MEDICATIONS Discontinued Medications Generic Name Dose Route Start Last Admin Trade Name [place] PRN Reason Stop Dose Admin Acetaminophen 1,000 mg 11/17/24 07:23 11/17/24 07:32 Acetaminophen 500mg Tab PO 11/17/24 07:24 1,000 mg ONCE ONE Administration Ibuprofen 600 mg 11/17/24 07:23 11/17/24 07:32 Ibuprofen 600 Mg Tablet PO 11/17/24 07:24 600 mg ONCE ONE Administration ORDERS Category Date Time Status CXR 2 view (NOT portable) [XR chest 2V] Stat Exams 11/17/24 07:23 Taken HIV Combo Stat Lab 11/17/24 07:20 Ordered Hepatitis C Ab Qual. W/ RFX Stat Lab 11/17/24 07:20 Ordered Rapid PCR Covid and Flu A/B Stat Lab 11/17/24 07:15 Received Medical Decision Narrative: Kaitlynn Eisenberg is a 54y female with a past medical history of sinusitis, asthma, hypertension who presents to the emergency department for complaints of sinus pressure and sinus drainage as well as a cough. Patient states that her symptoms started yesterday with drainage from her nose as well as pressure in her nose. She also reports a dry cough that began at the same time. She reports objective fever at home with chills but did not take her temperature. She states that she has had multiple sinus infections in the past and states that this is usually how it starts. She does not know if she has had any sick contacts. She does not have any chest pain, nausea, vomiting, abdominal pain or diarrhea. On arrival, patient is afebrile, normotensive, heart rate within normal limits, breathing comfortably on room air with oxygen saturation at 96% SpO2. Physical exam, stated above, revealed an overall well-appearing female in no distress. She has some mild nasal congestion but no tenderness over the frontal or maxillary sinuses. Cardiopulmonary exams unremarkable without any murmurs, wheezing, rales or rhonchi. Differential diagnosis includes, but is not limited to: Viral upper respiratory infection, viral sinusitis, bacterial sinusitis, pneumonia, among others. Workup in the emergency department included: Rapid COVID/flu testing, two-view chest x-ray. Will treat patient's symptoms with Tylenol and ibuprofen as she stated that the last time that she had Tylenol was yesterday and has not had any medication today. Given the patient's onset of symptoms started yesterday and she is afebrile and does not have any tenderness over the sinuses, there is low concern for bacterial sinus infection at this time and her symptomatology is most consistent with a viral illness. Lab work was considered, however this is not indicated at this time given patient's reassuring physical exam and vital signs and they would not change ED management. Chest x-ray was interpreted by me personally prior to official radiology reads and demonstrated no focal consolidations, no pneumothorax, no widening of the mediastinum, no pneumomediastinum. See final radiology report for details. No evidence of pneumonia on chest x-ray. Rapid COVID/flu testing is pending at this time. Patient encouraged to follow-up results on patient portal. At this time, no additional workup is recommended and will she treat her symptoms at home with Tylenol and ibuprofen every 6 hours as needed. Will provide her with Afrin and is instructed to use this for no longer than 3 days for symptomatic relief. 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 Critical Care Critical Care Time Critical Care Time: No
[2024-11-17 07:27] LABS: Coronavirus 19, PCR Not Detected (NotDetected); Influenza B, PCR Not Detected (NotDetected)
--- NOTE | 2024-11-17 07:29 | PC.NURSE ---
pt ambulatory to scan
--- NOTE | 2024-11-17 07:31 | PC.NURSE ---
pt back to room, ambulatory
[2024-11-17] MEDS: ACETAMINOPHEN 500MG TAB 1000 MG PO (07:32)
[2024-11-17] MEDS: IBUPROFEN 600 MG TABLET PO (07:32)
--- NOTE | 2024-11-17 07:42 | PC.NURSE ---
dr colon at bedside to update pt
[2024-11-17 07:48] VITALS: BP 125/80; PULSE 88; RESP 15; TEMP 36.6
[2024-11-17 08:01] LABS: Influenza A, PCR Detected (NotDetected)
== END 2024-11-17 07:49 | disposition home or self-care (01) ==
PROVIDERS: Emergency Provider Student in an Organized Health Care Education/Training Program; PCP Family Medicine
DX: J06.9 Acute upper respiratory infection, unspecified (principal); R05.9 Cough, unspecified; R09.81 Nasal congestion; R50.9 Fever, unspecified; J34.89 Other specified disorders of nose and nasal sinuses; M79.10 Myalgia, unspecified site
CPT/HCPCS: 71046; 87636; 99283

== ENCOUNTER 2024-11-18 15:42 | Emergency (ER) | payer MEDICAID, SELFPAY ==
[2024-11-18 15:47] VITALS: BP 123/65; PULSE 81; RESP 18; TEMP 36.8; O2SAT 95; BMI 29.2
--- NOTE | 2024-11-18 16:05 | PC.NURSE ---
Dr. Wall to see patient, pt not present.
[2024-11-18 16:13] VITALS: BP 123/65; PULSE 81; RESP 18; TEMP 36.8; O2SAT 95
--- NOTE | 2024-11-18 16:13 | PC.NURSE ---
pt not present at this time.
--- NOTE | 2024-11-18 18:06 | HMH.EDGENADL ---
Discharge Plan Disposition Patient Disposition: Eloped Chief Complaint: Upper Respiratory Infection Prescriptions Prescriptions: No Action gabapentin 800 mg tablet 800 mg PO QID buprenorphine-naloxone 8-2 mg tablet, sublingual 1 tab sublingual BID PRN (Reason: .) budesonide-formoterol [Symbicort] 160-4.5 mcg/actuation HFA aerosol inhaler 1 puff inhalation BID 90 Days Qty: 10.2 2RF montelukast [Singulair] 10 mg tablet 10 mg PO DAILY Qty: 90 2RF guaifenesin [Mucinex] 1,200 mg tablet extended release 12hr 1,200 mg PO BID PRN (Reason: congestion) Qty: 10 0RF Afrin (oxymetazoline) 0.05 % mist 2 spray intranasal BID PRN (Reason: nasal congestion) 3 Days Qty: 15 0RF Referrals Follow up/Referrals: Arjun Unger MD [Primary Care Provider] - See instructions Clinical Impressions Clinical Impression: Eloped from emergency department Print Language Print Language: Faroese Discharge ED Provider: Calderon Wall General Adult HPI General Chief complaint: Upper Respiratory Infection Stated complaint: Coughing up brown stuff,fever,chills,body aches Time Seen by Provider: 11/18/24 15:45 Mode of Arrival: Ambulatory Source of Information: Patient Description of Symptoms (Recalled from ER Triage Doc. by RN): pt presents to ED stating I was seen in the ER yesterday and misdiagnosed with a viral illness, I know its bacterial. pt states she is coughing up brown stuff. Related Data Home Medications ?Medication ?Instructions ?Recorded ?Confirmed gabapentin 800 mg tablet 800 mg PO QID Pain 10/08/22 11/18/24 buprenorphine 8 mg-naloxone 2 mg 1 tab sublingual BID PRN . 11/20/23 11/18/24 sublingual tablet Previous Rx's ?Medication ?Instructions ?Recorded budesonide-formoterol HFA 160 1 puff inhalation BID 90 days 07/13/24 mcg-4.5 mcg/actuation aerosol #10.2 grams inhaler (Symbicort) montelukast 10 mg tablet 10 mg PO DAILY #90 tabs 07/13/24 (Singulair) oxymetazoline 0.05 % nasal mist 2 spray intranasal BID PRN nasal 11/17/24 (Afrin (oxymetazoline)) congestion 3 days #15 mL guaifenesin 1,200 mg tablet, 1,200 mg PO BID PRN congestion #10 11/18/24 extended release 12 hr (Mucinex) tabs Allergies Allergy/AdvReac Type Severity Reaction Status Date / Time Latex, Natural Rubber Allergy Mild Rash Verified 11/18/24 17:06 cyclobenzaprine (From Allergy Irritable Verified 11/18/24 17:06 Flexeril) [facility] Disclaimer: The information contained in this section may have been updated after the patient was seen, as this information can be updated by other users. Medical History (Updated 11/18/24 @ 17:49 by Leonor Marques APRN) Influenza A Has been smoking tobacco for 15 years Asthma Allergic rhinitis Acute sinusitis Dyspnea on exertion HTN (hypertension) Depression Urinary tract infection Pneumonia Bronchitis Sinus headache Allergies History of anemia Hot flashes due to menopause LLQ pain Abnormal uterine bleeding Degenerative disc disease Surgical History History of carpal tunnel repair Hx of dilation and curettage History of endometrial ablation Hx of appendectomy History of bilateral tubal ligation Family History Other Alzheimers disease Cancer Hypertension Social History Smoking Status: Never smoker alcohol intake: current alcohol intake frequency: holidays/special occasions only substance use type: former substance user and opiates current occupational status: unemployed Travel in the last 8 weeks: None household members: spouse housing: house marital status: education level: college service: No caffeine: Yes special nic needs: No agree to transfusion: No do you feel safe at home: Yes victim of physical abuse: No victim of emotional abuse: No victim of sexual abuse: No would you like helpful sources: No Have you lived/traveled outside US in past 30 days?: No Contact w/someone who lives/traveled outside US past 30 days?: No Exposure to someone with infectious disease in past 14 days?: No Do you have a fever (greater than 100.4 F or 38 C)?: No Have you tested positive for COVID-19: No Exposed to someone with COVID-19 in past 14 days?: No Do you have a sore throat?: No Do you have a cough?: Yes Do you have shortness of breath?: No Do you have a headache?: Yes Do you have any weakness?: Yes Are you experiencing any nausea/vomitting?: No Do you have any diarrhea?: No Are you experiencing any unusual bleeding?: No Do you have any muscle aches/pain?: No Do you have any abdominal pain?: No Are you experiencing loss of taste or smell?: No Other Medical History Have you received the Flu Vaccine for this season: No Have you received the Pneumonia Vaccine: No ROS Obtained: Yes other Physical Exam General General appearance: other Respiratory Respiratory exam: Present other Cardiovascular Cardiovascular exam: Present other Neurological Exam Neurological exam: Present other Medical Decision Making Medical Records Screening: Per USPSTF and CDC recommendations, given the prevalence of disease in our region, it is our hospital?s policy to screen for HIV and viral Hepatitis for all patients aged 18 and over and those with ongoing risk factors. Elmer Inquiry Pt receiving controlled substance: No Vital Signs: 11/18/24 15:47 11/18/24 16:13 Temperature 98.2 F 98.2 F Temperature Source Oral Pulse Rate 81 Pulse Rate [Right Radial] 81 Respiratory Rate 18 18 Blood Pressure 123/65 Blood Pressure [Right Arm] 123/65 Blood Pressure Mean [Right Arm] 84 Blood Pressure Source [Right Arm] Automatic Cuff Blood Pressure Position [Right Arm] Sitting 02 Sat by Pulse Oximetry 95 Oxygen Delivery Method Room Air Room Air Medical Decision Narrative: Patient eloped prior to my evaluation Critical Care Critical Care Time Critical Care Time: No
== END 2024-11-18 16:15 | disposition left against medical advice (07) ==
PROVIDERS: Emergency Provider Emergency Medicine; PCP Emergency Medicine
DX: Z53.21 Procedure and treatment not carried out due to patient leaving prior to being seen by health care provider (principal); R05.9 Cough, unspecified; R52 Pain, unspecified; R68.83 Chills (without fever)
CPT/HCPCS: 99281

== ENCOUNTER 2024-12-16 11:58 | Emergency (ER) | payer MEDICAID, SELFPAY ==
[2024-12-16 12:03] VITALS: BP 128/88; PULSE 80; RESP 18; TEMP 36.6; O2SAT 97; BMI 28.3
--- NOTE | 2024-12-16 12:06 | ED_ITS ---
<Statement entered by Edmond Hogan MD - 12/16/24 15:44> I was consulted by the GAURI, and we discussed the complexity of the problems being addressed. I approved the treatment and management plan for this patient's care in the emergency department, thus performing a substantive portion of the medical decision making. Edmond Hogan MD Discharge Plan Disposition Patient Disposition: Home, Self-Care Condition: Good Prescriptions Prescriptions: New methocarbamol 750 mg tablet 750 mg PO Q6H PRN (Reason: muscle spasm) Qty: 20 0RF prednisone 50 mg tablet 50 mg PO DAILY 5 Days Qty: 5 0RF No Action gabapentin 800 mg tablet 800 mg PO QID buprenorphine-naloxone 8-2 mg tablet, sublingual 1 tab sublingual BID PRN (Reason: .) budesonide-formoterol [Symbicort] 160-4.5 mcg/actuation HFA aerosol inhaler 1 puff inhalation BID 90 Days Qty: 10.2 2RF montelukast [Singulair] 10 mg tablet 10 mg PO DAILY Qty: 90 2RF guaifenesin [Mucinex] 1,200 mg tablet extended release 12hr 1,200 mg PO BID PRN (Reason: congestion) Qty: 10 0RF Afrin (oxymetazoline) 0.05 % mist 2 spray intranasal BID PRN (Reason: nasal congestion) 3 Days Qty: 15 0RF Referrals Follow up/Referrals: Arjun Unger MD [Primary Care Provider] - See instructions Activity Restrictions/Add. Instructions Additional Instructions/Restrictions: I have sent both a muscle relaxer and 5 more days of steroids into your pharmacy. Please do not start till tomorrow. Please keep your follow-up with Dr. Toney for reevaluation. If you have any continued new or worsening signs or symptoms return to the ER as needed. Clinical Impressions Clinical Impression: Sciatica Qualifiers: Laterality: bilateral Qualified Code(s): M54.31 - Sciatica, right side Instructions Patient Instructions: DI for Sciatica Print Language Print Language: Indonesian Discharge ED Provider: Edmond Hogan General Adult HPI General Chief complaint: Back Pain/Injury Stated complaint: Lower back pain through both legs Time Seen by Provider: 12/16/24 12:06 Mode of Arrival: Ambulatory Source of Information: Patient Description of Symptoms (Recalled from ER Triage Doc. by RN): lower back pain. radiating down both legs. pt states this has happened many times. typically a steroid shot helps the most. she sees a surgeon next . History of Present Illness HPI narrative: Patient presents for evaluation of sciatic pain. Patient has a known history of degenerative disc disease with sciatica. She follows with Dr. Toney of [facility]. She has been offered surgery in the past however patient has wished to pursue conservative measures in the past. For the last 3 days she has had bilateral radicular pain to her feet. Normally she takes gabapentin and ibuprofen that is very helpful however it has not been helpful for the last 2 days. She denies any loss of motor or sensory any saddle anesthesia chest pain shortness of breath fever chills hemoptysis hematochezia melena nausea vomit diarrhea. Related Data Home Medications ?Medication ?Instructions ?Recorded ?Confirmed gabapentin 800 mg tablet 800 mg PO QID Pain 10/08/22 11/18/24 buprenorphine 8 mg-naloxone 2 mg 1 tab sublingual BID PRN . 11/20/23 11/18/24 sublingual tablet Previous Rx's ?Medication ?Instructions ?Recorded budesonide-formoterol HFA 160 1 puff inhalation BID 90 days 07/13/24 mcg-4.5 mcg/actuation aerosol #10.2 grams inhaler (Symbicort) montelukast 10 mg tablet 10 mg PO DAILY #90 tabs 07/13/24 (Singulair) oxymetazoline 0.05 % nasal mist 2 spray intranasal BID PRN nasal 11/17/24 (Afrin (oxymetazoline)) congestion 3 days #15 mL guaifenesin 1,200 mg tablet, 1,200 mg PO BID PRN congestion #10 11/18/24 extended release 12 hr (Mucinex) tabs methocarbamol 750 mg tablet 750 mg PO Q6H PRN muscle spasm #20 12/16/24 tabs prednisone 50 mg tablet 50 mg PO DAILY 5 days #5 tabs 12/16/24 Allergies Allergy/AdvReac Type Severity Reaction Status Date / Time Latex, Natural Rubber Allergy Mild Rash Verified 11/18/24 17:06 cyclobenzaprine (From Allergy Irritable Verified 11/18/24 17:06 Flexeril) [facility] Disclaimer: The information contained in this section may have been updated after the patient was seen, as this information can be updated by other users. Medical History (Updated 12/16/24 @ 12:18 by DIEGO Duron) Influenza A Has been smoking tobacco for 15 years Asthma Allergic rhinitis Acute sinusitis Dyspnea on exertion HTN (hypertension) Depression Urinary tract infection Pneumonia Bronchitis Sinus headache Allergies History of anemia Hot flashes due to menopause LLQ pain Abnormal uterine bleeding Degenerative disc disease Surgical History History of carpal tunnel repair Hx of dilation and curettage History of endometrial ablation Hx of appendectomy History of bilateral tubal ligation Family History Other Alzheimers disease Cancer Hypertension Social History Smoking Status: Never smoker alcohol intake: current alcohol intake frequency: holidays/special occasions only substance use type: former substance user and opiates current occupational status: unemployed Travel in the last 8 weeks: None household members: spouse housing: house marital status: education level: college service: No caffeine: Yes special nic needs: No agree to transfusion: No do you feel safe at home: Yes victim of physical abuse: No victim of emotional abuse: No victim of sexual abuse: No would you like helpful sources: No Have you lived/traveled outside US in past 30 days?: No Contact w/someone who lives/traveled outside US past 30 days?: No Exposure to someone with infectious disease in past 14 days?: No Do you have a fever (greater than 100.4 F or 38 C)?: No Have you tested positive for COVID-19: No Exposed to someone with COVID-19 in past 14 days?: No Do you have a sore throat?: No Do you have a cough?: No Do you have any weakness?: No Do you have any diarrhea?: No Are you experiencing any unusual bleeding?: No Do you have any muscle aches/pain?: No Do you have any abdominal pain?: No Are you experiencing loss of taste or smell?: No Other Medical History Have you received the Flu Vaccine for this season: No Have you received the Pneumonia Vaccine: No ROS Obtained: Yes Systems reviewed as appropriate & no additional complaints except as documented Physical Exam General General appearance: alert and in no apparent distress Respiratory Respiratory exam: Present normal lung sounds bilaterally Cardiovascular Cardiovascular exam: Present regular rate Neurological Exam Neurological exam: Present alert and oriented X3 Medical Decision Making Medical Records Medical records reviewed: Yes I reviewed the patient's medical records. Screening: Per USPSTF and CDC recommendations, given the prevalence of disease in our region, it is our hospital?s policy to screen for HIV and viral Hepatitis for all patients aged 18 and over and those with ongoing risk factors. Elmer Inquiry Pt receiving controlled substance: No Vital Signs: 12/16/24 12:03 Temperature 97.9 F Temperature Source Oral Pulse Rate [Right] 80 Respiratory Rate 18 Blood Pressure [Right Arm] 128/88 Blood Pressure Mean [Right Arm] 101 02 Sat by Pulse Oximetry 97 Oxygen Delivery Method Room Air Orders (Tests/Meds): ED MEDICATIONS Generic Name Dose Route Start Last Admin Trade Name Freq PRN Reason Stop Dose Admin Methylprednisolone Sodium Succinate 125 mg 12/16/24 12:16 Methylprednisolone Sod Succ 125mg Vial IM 12/16/24 12:17 ONCE ONE Medical Decision Narrative: In summary patient is a 54-year-old female who presents to the emergency department for evaluation of sciatica. Patient is hemodynamically stable upon arrival, afebrile. Physical exam is remarkable for increased radicular pain with straight leg raise however patient has no loss of motor or sensory no focal neurologic deficits no saddle anesthesia.. Differential diagnosis includes degenerative disc disease versus sciatic pain although patient has no red flags to suggest worsening signs or symptoms that is no other alternative diagnosis is likely or pursued. Initial workup was considered with labs and imaging however patient has been worked up fully in the past and has follow-up appointment with spine surgeon on the thus deferred. Initial interventions include via shared decision making discussion patient requests IM shot of steroids as it has worked with her in the past and she would prefer to not pursue any other aggressive measures as she has already has follow-up with spine surgery on the thus we will order 125 mg Solu-Medrol IM. Given this patient is appropriate discharged with a prescription for Robaxin and 5 additional days of steroids. Patient vies follow-up with spine surgery as scheduled with strict return precautions. Critical Care Critical Care Time Critical Care Time: No
[2024-12-16] MEDS: METHYLPREDNISOLONE SOD SUCC 125MG VIAL 125 MG IM (12:20)
[2024-12-16 12:31] VITALS: BP 126/80; PULSE 68; RESP 18; TEMP 36.7; O2SAT 98
== END 2024-12-16 12:35 | disposition home or self-care (01) ==
PROVIDERS: Emergency Provider Emergency Medicine; PCP Emergency Medicine
DX: M54.31 Sciatica, right side (principal)
CPT/HCPCS: 96372; 99283; J2919

== ENCOUNTER 2025-01-02 09:33 | Emergency (ER) | payer MEDICAID, SELFPAY ==
[2025-01-02 09:41] VITALS: BP 131/79; PULSE 79; RESP 18; TEMP 36.4; O2SAT 100; BMI 27.4
--- NOTE | 2025-01-02 09:41 | PC.NURSE ---
DR GARCIA AT BEDSIDE
--- NOTE | 2025-01-02 09:58 | HMH.EDGENADL ---
Discharge Plan Disposition Patient Disposition: Home, Self-Care Condition: Good Prescriptions Prescriptions: No Action gabapentin 800 mg tablet 800 mg PO QID buprenorphine-naloxone 8-2 mg tablet, sublingual 1 tab sublingual BID PRN (Reason: .) budesonide-formoterol [Symbicort] 160-4.5 mcg/actuation HFA aerosol inhaler 1 puff inhalation BID 90 Days Qty: 10.2 2RF montelukast [Singulair] 10 mg tablet 10 mg PO DAILY Qty: 90 2RF guaifenesin [Mucinex] 1,200 mg tablet extended release 12hr 1,200 mg PO BID PRN (Reason: congestion) Qty: 10 0RF Afrin (oxymetazoline) 0.05 % mist 2 spray intranasal BID PRN (Reason: nasal congestion) 3 Days Qty: 15 0RF methocarbamol 750 mg tablet 750 mg PO Q6H PRN (Reason: muscle spasm) Qty: 20 0RF prednisone 50 mg tablet 50 mg PO DAILY 5 Days Qty: 5 0RF Referrals Follow up/Referrals: Arjun Unger MD [Primary Care Provider] - See instructions Activity Restrictions/Add. Instructions Additional Instructions/Restrictions: Take Tylenol and ibuprofen as needed for sore throat. Follow-up with primary care doctor. Please return the emerged part with any new, concerning, worsening symptoms. Clinical Impressions Clinical Impression: Acute sore throat Print Language Print Language: Slovenian Discharge ED Provider: Star Melendez General Adult HPI General Chief complaint: Upper Respiratory Infection Stated complaint: white patches on tonsils, sore throat, cough Time Seen by Provider: 01/02/25 09:41 Mode of Arrival: Ambulatory Source of Information: Patient Description of Symptoms (Recalled from ER Triage Doc. by RN): PT REPORTS SORE THROAT, COUGH AND DRAINAGE THAT STARTED YESTERDAY. DENIES FEVER History of Present Illness HPI narrative: This is a 54-year-old female who presents with concern for sore throat, cough, and sinus drainage that began yesterday. Denies fever. Reports mild chills. Denies any shortness of breath, nausea, vomiting, diarrhea. States that she thinks that she noticed some white discharge from her right tonsil this morning. Related Data Home Medications ?Medication ?Instructions ?Recorded ?Confirmed gabapentin 800 mg tablet 800 mg PO QID Pain 10/08/22 11/18/24 buprenorphine 8 mg-naloxone 2 mg 1 tab sublingual BID PRN . 11/20/23 11/18/24 sublingual tablet Previous Rx's ?Medication ?Instructions ?Recorded budesonide-formoterol HFA 160 1 puff inhalation BID 90 days 07/13/24 mcg-4.5 mcg/actuation aerosol #10.2 grams inhaler (Symbicort) montelukast 10 mg tablet 10 mg PO DAILY #90 tabs 07/13/24 (Singulair) oxymetazoline 0.05 % nasal mist 2 spray intranasal BID PRN nasal 11/17/24 (Afrin (oxymetazoline)) congestion 3 days #15 mL guaifenesin 1,200 mg tablet, 1,200 mg PO BID PRN congestion #10 11/18/24 extended release 12 hr (Mucinex) tabs methocarbamol 750 mg tablet 750 mg PO Q6H PRN muscle spasm #20 12/16/24 tabs prednisone 50 mg tablet 50 mg PO DAILY 5 days #5 tabs 12/16/24 Allergies Allergy/AdvReac Type Severity Reaction Status Date / Time Latex, Natural Rubber Allergy Mild Rash Verified 11/18/24 17:06 cyclobenzaprine (From Allergy Irritable Verified 11/18/24 17:06 Flexeril) [facility] Disclaimer: The information contained in this section may have been updated after the patient was seen, as this information can be updated by other users. Medical History (Updated 01/02/25 @ 10:02 by Star Melendez MD) Influenza A Has been smoking tobacco for 15 years Asthma Allergic rhinitis Acute sinusitis Dyspnea on exertion HTN (hypertension) Depression Urinary tract infection Pneumonia Bronchitis Sinus headache Allergies History of anemia Hot flashes due to menopause LLQ pain Abnormal uterine bleeding Degenerative disc disease Surgical History History of carpal tunnel repair Hx of dilation and curettage History of endometrial ablation Hx of appendectomy History of bilateral tubal ligation Family History Other Alzheimers disease Cancer Hypertension Social History Smoking Status: Current every day smoker tobacco type: e-cigarettes alcohol intake: current alcohol intake frequency: holidays/special occasions only substance use type: former substance user and opiates current occupational status: unemployed Travel in the last 8 weeks: None household members: spouse housing: house marital status: education level: college service: No caffeine: Yes special nic needs: No agree to transfusion: No do you feel safe at home: Yes victim of physical abuse: No victim of emotional abuse: No victim of sexual abuse: No would you like helpful sources: No Have you lived/traveled outside US in past 30 days?: No Contact w/someone who lives/traveled outside US past 30 days?: No Exposure to someone with infectious disease in past 14 days?: No Do you have a fever (greater than 100.4 F or 38 C)?: No Have you tested positive for COVID-19: No Exposed to someone with COVID-19 in past 14 days?: No Do you have a sore throat?: Yes Do you have a cough?: Yes Do you have any weakness?: No Do you have any diarrhea?: No Are you experiencing any unusual bleeding?: No Do you have any muscle aches/pain?: No Do you have any abdominal pain?: No Are you experiencing loss of taste or smell?: No Other Medical History Have you received the Flu Vaccine for this season: No Have you received the Pneumonia Vaccine: No ROS Obtained: Yes All systems reviewed & no additional complaints except as documented Physical Exam General General appearance: alert and in no apparent distress Head Head exam: atraumatic Eye Eye exam: Present normal appearance, PERRL and EOMI ENT ENT exam: Present normal exam, normal oropharynx, mucous membranes moist and other (1 small tonsil with present on right tonsil. No significant enlargement) Neck Neck exam: Present normal inspection and full ROM; Absent tenderness or lymphadenopathy Chest Chest inspection: Present symmetric chest wall rise Respiratory Respiratory exam: Present normal lung sounds bilaterally; Absent respiratory distress Cardiovascular Cardiovascular exam: Present regular rate and normal rhythm Abdominal Exam Abdominal exam: Present soft; Absent distention Extremities Exam Extremities exam: Present normal inspection Neurological Exam Neurological exam: Present alert and oriented X3 Psychiatric Psychiatric exam: Present normal affect and normal mood Skin Skin exam: Present warm and dry Medical Decision Making Medical Records Medical records reviewed: Yes I reviewed the patient's medical records. Screening: Per USPSTF and CDC recommendations, given the prevalence of disease in our region, it is our hospital?s policy to screen for HIV and viral Hepatitis for all patients aged 18 and over and those with ongoing risk factors. Elmer Inquiry Pt receiving controlled substance: No Vital Signs: 01/02/25 09:41 01/02/25 10:07 Temperature 97.6 F 97.6 F Temperature Source Oral Pulse Rate 84 Pulse Rate [Radial] 79 Respiratory Rate 18 18 Blood Pressure 131/79 Blood Pressure [Right Arm] 131/79 Blood Pressure Mean [Right Arm] 96 Blood Pressure Source [Right Arm] Automatic Cuff Blood Pressure Position [Right Arm] Sitting 02 Sat by Pulse Oximetry 100 Oxygen Delivery Method Room Air Lab Data Lab Results 01/02/25 09:39: Group A Strep Rapid Negative Orders (Tests/Meds): ORDERS Category Date Time Status HIV Combo Stat Lab 01/02/25 09:45 Ordered Hepatitis C Ab Qual. W/ RFX Stat Lab 01/02/25 09:45 Ordered Rapid Strep Scrn Group A [Strep Scrn Group A (Rapid)] Lab 01/02/25 09:39 Completed Stat Strep Screen Confirmation Stat Micro 01/02/25 09:39 Received Medical Decision Narrative: In summary, this 54-year-old female presents to the emergency department today with sore throat, cough, chills that began yesterday. On initial evaluation patient is afebrile, he medically stable, nontoxic-appearing. Differential diagnosis includes but is not limited to strep pharyngitis, viral pharyngitis, tonsillitis. Based on these concerns, I ordered strep screen. Believe patient's physical exam is consistent with a tonsil with rather than purulent discharge from tonsils. Strep screen negative. Most likely etiology of patient's presentation is a viral illness. Counseled the patient and provided reassurance. Ultimately discharged for outpatient symptomatic therapy and follow-up. Critical Care Critical Care Time Critical Care Time: No
[2025-01-02 10:04] LABS: Strep Scrn Group A (Rapid) Negative (Negative)
[2025-01-02 10:07] VITALS: BP 131/79; PULSE 84; RESP 18; TEMP 36.4
== END 2025-01-02 10:08 | disposition home or self-care (01) ==
PROVIDERS: Emergency Provider Student in an Organized Health Care Education/Training Program; PCP Emergency Medicine
DX: R07.0 Pain in throat (principal); R09.82 Postnasal drip
CPT/HCPCS: 87430; 99283

== ENCOUNTER 2025-02-10 14:51 | Outpatient (CLI) | payer MEDICAID, SELFPAY ==
--- NOTE | 2025-02-10 14:54 | XR_ITS ---
FINAL REPORT CLINICAL HISTORY: c/o cough COMPARISON: 11/17/2024 FINDINGS: PA and lateral views of the chest were obtained. The cardiac and mediastinal silhouettes are within normal limits. The lungs are clear. There is no pleural effusion or pneumothorax. No acute osseous abnormality is identified. IMPRESSION: No radiographic evidence of acute cardiac or pulmonary disease. Reviewed, Interpreted and Dictated by Anna Delgado MD Transcribed by Tesha Soto Authenticated and [facility]
== END 2025-02-10 23:59 | disposition home or self-care (01) ==
LOC: RAD 14:52
PROVIDERS: PCP Family Medicine; Visit Provider Student in an Organized Health Care Education/Training Program
DX: R05.9 Cough, unspecified (principal)
CPT/HCPCS: 71046